=== PATIENT | female | born 1955 | race Caucasian/White ===

== ENCOUNTER 2017-07-24 08:06 | Day surgery (SDC) | payer OTHER ==
[~2017-07-24] VITALS: Ht 160 cm; Wt 91.2 kg
[~2017-07-24 08:06] MED LIST: ADIPEX-P37.5 MG PO; BREO ELLIPTA 21 EACH; BREO ELLIPTA I1 EACH INH; CELEBREX100 MG PO; COMBIVENT RESPIM4 GM INH; HYDROCHLOROTH12.5 MG PO; INCRUSE ELLI62.5 MCG IH; MOBIC15 MG PO; NORCO 5-325 TA1 EACH PO; PHENTERMINE H37.5 MG PO; PREDNISONE20 MG PO; PREVACID30 M1 PO; PREVACID30 MG PO; PRILOSEC20 MG PO; PROZAC10 MG PO; PROZAC20 MG PO; SINGULAIR10 MG PO; SYMBICORT 16010.2 GM INH; ZITHROMAX500 MG PO
--- NOTE | 2017-07-24 09:52 | NUR ---
07/24/17 0952 Coreen Villanueva 0949 PATIENT ARRIVES TO PACU SLEEPING, AWAKENS WITH VERBAL STIMULI, DENIES PAIN THEN BACK TO SLEEP. NC AT 3 LITERS.
--- NOTE | 2017-07-30 06:10 | OR ---
[facility] [address], [place] [address] Signed DATE OF OPERATION: 07/24/2017 SURGEON: Ni Ansari MD PREOPERATIVE DIAGNOSIS: Personal history of colonic polyps in 2009. POSTOPERATIVE DIAGNOSIS: Unremarkable colonoscopy. PROCEDURE: Colonoscopy without biopsy. ESTIMATED BLOOD LOSS: None. INDICATIONS: Ariela is a 61-year-old female, who underwent colonoscopy in July 2009. A small adenomatous polyp was removed just above her rectum. She returns for followup colonoscopy. She has no lower GI complaints. There is no family history of colon cancer or polyps. In the office, I gave her a pamphlet on colonoscopy. We looked at that together along with the risks including, but not limited to gas bloating, crampy abdominal pain, bleeding, perforation, requiring surgery, and missed diagnosis. We also discussed the need for IV conscious sedation. She had expressed understanding and wished to proceed. PROCEDURE NOTE: Ariela was taken into our endoscopy suite and placed in the left lateral decubitus position. She was given 7 mg of Versed and 100 mcg fentanyl to cover the case. A digital rectal exam was performed and this was unremarkable. The adult colonoscope was introduced and advanced all around into the cecum under direct visualization of the camera without difficulty. Her prep was quite good. The scope was then slowly withdrawn. We saw no pathology throughout her entire colon or rectum. Upon retroflexion of the scope, there was no additional pathology noted above the anal canal. After this, the gas was suctioned out and the colonoscope removed. Ariela tolerated the procedure quite well. RECOMMENDATIONS: I will see Ariela in my office in 5 years for repeat colonoscopy. Electronically Signed By: NI ANSARI MD 07/30/17 0610 PATIENT NAME: ARIELA GANDHI OPERATIVE REPORT DATE OF : 57 REPORT #: [id number] PHYSICIAN: NI ANSARI MD PCP: MARIO HAMPTON DO REPORT IS CONFIDENTIAL AND NOT TO BE RELEASED WITHOUT AUTHORIZATION [address] [address] Signed Ni Ansari MD ALB/MODL /[id number] cc: Mario Hampton DO Copies: MARIO HAMPTON DO ~ Electronically Signed By: NI ANSARI MD 07/30/17 0610 PATIENT NAME: ARIELA GANDHI OPERATIVE REPORT DATE OF : 57 REPORT #: [id number] PHYSICIAN: NI ANSARI MD PCP: WALKER,MARIO DO REPORT IS CONFIDENTIAL AND NOT TO BE RELEASED WITHOUT AUTHORIZATION
== END 2017-07-24 10:30 | disposition home or self-care (01) ==
LOC: DS 08:06 → OPS 08:06 → DS 09:45 → OPS 10:30
PROVIDERS: Colon & Rectal Surgery
PROC: 0DJD8ZZ Inspection of Lower Intestinal Tract, Via Natural or Artificial Opening Endoscopic (ICD-10-PCS; principal; 2017-07-24 09:45)
DX: Z12.11 Encounter for screening for malignant neoplasm of colon (principal); I10 Essential (primary) hypertension; J45.909 Unspecified asthma, uncomplicated; K21.9 Gastro-esophageal reflux disease without esophagitis; M19.90 Unspecified osteoarthritis, unspecified site; F32.9 Major depressive disorder, single episode, unspecified; Z86.010 Personal history of colon polyps; Z98.890 Other specified postprocedural states; Z79.899 Other long term (current) drug therapy
CPT/HCPCS: G0500; J2250; J3010; J7120

== ENCOUNTER 2017-12-17 11:54 | Emergency (ER) | payer OTHER ==
[~2017-12-17] VITALS: Ht 160 cm; Wt 91.2 kg
== END 2017-12-17 12:08 | disposition home or self-care (01) ==
LOC: ED 11:54
DX: S89.92XA Unspecified injury of left lower leg, initial encounter (principal); W01.0XXA Fall on same level from slipping, tripping and stumbling without subsequent striking against object, initial encounter; Y93.01 Activity, walking, marching and hiking; Y92.89 Other specified places as the place of occurrence of the external cause; Y99.0 Civilian activity done for income or pay

== ENCOUNTER 2019-12-21 08:06 | Emergency (ER) | payer OTHER ==
[~2019-12-21] VITALS: Ht 160 cm; Wt 91.2 kg
--- OUTSIDE RECORDS SUMMARY | ~2019-12-21 | XMS | Encounter Summary ---
Demographics + + + | Address | [address] | | | [place] [address] | + + + | Home Phone | | + + + | Preferred Language | Unknown | + + + | Marital Status | Single | + + + | Advent Affiliation | Unknown | + + + | Race | Unknown | + + + | Ethnic Group | Unknown | + + + Author + + + | Author | [facility] | | | and [place] | + + + | Organization | [facility] | | | and [place] | + + + | Address | Unknown | + + + | Phone | Unavailable | + + + Support + + +---------+ + | Name | Relationship | Address | Phone | + + +---------+ + | Domingo Lopez | ECON | Unknown | | + + +---------+ + | Ange Kwokconstantinelidia | ECON | Unknown | | + + +---------+ + | Judy Dumont | ECON | Unknown | | + + +---------+ + Care Team Providers + +------+ + | Care Hearing Therapist Name | Role | Phone | + +------+ + | Mario Vallecillo DO | PCP | | + +------+ + Encounter Details +--------+ + + + + | Date | Type | Department | Care Team | Description | +--------+ + + + + | 10/09/ | Abstract | [facility] | Antwan Olivo, | | | 2017 | | PULMONARY [address] | | | | | [place], | [place] [address] | | | | | [place] [address] | [phone] | | | | | [phone] | | | +--------+ + + + + Social History + +-------+ +--------+------+ | Tobacco Use | Types | Packs/Day | Years | Date | | | | | Used | | + +-------+ +--------+------+ | Former Smoker | | | | | + +-------+ +--------+------+ + + +---------+ + | Alcohol Use | Drinks/Week | oz/Week | Comments | + + +---------+ + | Yes | | | | + + +---------+ + + + + | Sex Assigned at | Date Recorded | | | | + + + | Not on file | | + + + documented as of this encounter Plan of Treatment Not on filedocumented as of this encounter Visit Diagnoses Not on filedocumented in this encounter"
--- OUTSIDE RECORDS SUMMARY | ~2019-12-21 | XMS | Clinical Summary ---
Demographics + + + | Address | [address] | | | [place] [address] | + + + | Home Phone | | + + + | Preferred Language | Unknown | + + + | Marital Status | Single | + + + | Faith Affiliation | Unknown | + + + | Race | Unknown | + + + | Ethnic Group | Unknown | + + + Author + + + | Author | [facility] | | | and [place] | + + + | Organization | [facility] | | | and [place] | [...] Team Providers + +------+ + | Care Neurophysiological Technician Name | Role | Phone | + +------+ + | Mario Vallecillo DO | PCP | | + +------+ + Allergies No Known Allergies Medications + + + +---------+------+------+-------+ | Medication | Sig | Dispensed | Refills | Star | End | Statu | | | | | | t | Date | s | | | | | | Date | | | + + + +---------+------+------+-------+ | lansoprazole | Take 30 mg by mouth | | 0 | | | Activ | | (PREVACID SOLUTAB) | every morning | | | | | e | | 30 mg disintegrating | (before breakfast). | | | | | | | tablet | | | | | | | + + + +---------+------+------+-------+ | FLUoxetine | Take 10 mg by mouth | | 0 | | | Activ | | (PROZAC) 10 mg | Daily. | | | | | e | | capsule | | | | | | | + + + +---------+------+------+-------+ | montelukast | Take 10 mg by mouth | | 0 | | | Activ | | (SINGULAIR) 10 mg | nightly. | | | | | e | | tablet | | | | | | | + + + +---------+------+------+-------+ | VITAMIN D, | Take 5,000 Units by | | 0 | | | Activ | | CHOLECALCIFEROL, PO | mouth Daily. | | | | | e | + + + +---------+------+------+-------+ | fluticasone | Inhale 2 puffs into | | 0 | | | Activ | | (FLOVENT HFA) 220 | the lungs 2 times | | | | | e | | mcg/puff inhaler | daily. | | | | | | + + + +---------+------+------+-------+ | | Inhale 2 puffs into | 1 | 1 | 04/1 | | Activ | | budesonide-formotero | the lungs 2 times | Inhaler | | 0/20 | | e | | l (SYMBICORT) | daily. | | | 18 | | | | 160-4.5 mcg/puff | | | | | | | | inhaler | | | | | | | + + + +---------+------+------+-------+ | albuterol | Inhale 2 puffs into | 18 g | 3 | 06/2 | | Activ | | (VENTOLIN HFA) 90 | the lungs every 4 | | | 7/20 | | e | | mcg/puff inhaler | hours as needed for | | | 18 | | | | | Wheezing or | | | | | | | | Shortness of Breath. | | | | | | + + + +---------+------+------+-------+ Active Problems Not on file Family History + + +------+ + | Medical History | Relation | Name | Comments | + + +------+ + | Cancer | Father | | | + + +------+ + | Hypertension | Father | | | + + +------+ + + +------+--------+ + | Relation | Name | Status | Comments | + +------+--------+ + | Father | | | | + +------+--------+ + Social History + + + +--------+ + | Tobacco Use | Types | Packs/Day | Years | Date | | | | | Used | | + + + +--------+ + | Former Smoker | Cigarettes | 1 | 10 | Quit: 10/31/1984 | + + + +--------+ + + + +---------+ + | Alcohol Use | Drinks/Week | oz/Week | Comments | + + +---------+ + | Yes | 0 Standard drinks | 0.0 | | | | or equivalent | | | + + +---------+ + + + + | Sex Assigned at | Date Recorded | | | | + + + | Not on file | | + + + Last Filed Vital Signs + + + + + | Vital Sign | Reading | Time Taken | Comments | + + + + + | Blood Pressure | 120/80 | 11/08/2016 2:10 PM | | | | | PDT | | + + + + + | Pulse | 92 | 11/08/2016 2:10 PM | | | | | PDT | | + + + + + | Temperature | 36.8 C (98.3 F) | 11/08/2016 2:10 PM | | | | | PDT | | + + + + + | Respiratory Rate | - | - | | + + + + + | Oxygen Saturation | 99% | 11/08/2016 2:10 PM | | | | | PDT | | + + + + + | Inhaled Oxygen | - | - | | | Concentration | | | | + + + + + | Weight | 90.1 kg (198 lb 11.2 | 11/08/2016 2:10 PM | | | | oz) | PDT | | + + + + + | Height | 161.3 cm (5' 3.5") | 11/08/2016 2:10 PM | | | | | PDT | | + + + + + | Body Mass Index | 34.65 | 11/08/2016 2:10 PM | | | | | PDT | | + + + + + Plan of Treatment + + +-------+ + | Health Maintenance | Due Date | Last | Comments | | | | Done | | + + +-------+ + | Vaccine: | | | | | Dtap/Tdap/Td (1 - | 6 | | | | Tdap) | | | | + + +-------+ + | Cervical Cancer | | | | | Screening (Pap) | 7 | | | + + +-------+ + | Vaccine: Zoster (1 | | | | | of 2) | 7 | | | + + +-------+ + | Breast Cancer | | | | | Screening | 2 | | | + + +-------+ + | Vaccine: Influenza | | | | | (#1) | 0 | | | + + +-------+ + Results Not on filefrom Last 3 Months Insurance + +--------+ +--------+ +---------+------+ | Payer | Benefi | Subscriber | Effect | Phone | Address | Type | | | t Plan | ID | jennifer | | | | | | / | | Dates | | | | | | Group | | | | | | + +--------+ +--------+ +---------+------+ | [employer] | PHP | [id number] | | [phone] | | PPO | | PLAN | PEBB | | 014-Pr | 5 | | | | | STATEW | | esent | | | | | | FORTINO | | | | | | + +--------+ +--------+ +---------+------+ + +--------+ +--------+ + + | Guarantor Name | Accoun | Relation to | Date | Phone | Billing Address | | | t Type | Patient | of | | | | | | | | | | + +--------+ +--------+ + + | Cassia Pathak | Person | Self | [birth year] | [address] | | [place] | al/Fam | | 1955 | [phone] | [place] [address] | | | kylah | | | 8 (Home) | | + +--------+ +--------+ + + Advance Directives + + + + + | Type | Date Recorded | Patient | Explanation | | | | Harp Repairer | | + + + + + | Power of | | | | | Bereavement Program Coordinator | | | | + + + + + | Advance | | | | | Directive | | | | + + + + +
--- OUTSIDE RECORDS SUMMARY | ~2019-12-21 | XMS | Encounter Summary ---
Demographics + + + | Address | [address] | | | [place] [address] | + + + | Home Phone | | + + + | Preferred Language | Unknown | + + + | Marital Status | Single | + + + | Spiritism Affiliation | Unknown | + + + | Race | Unknown | + + + | Ethnic Group | Unknown | + + + Author + + + | Author | [facility] | | | and [place] | + + + | Organization | [facility] | | | and [place] [...] Team Providers + +------+ + | Care Brownell Operator Name | Role | Phone | + +------+ + | Mario Vallecillo DO | PCP | | + +------+ + Reason for Visit + +--------+ + | Reason | Onset | Comments | | | Date | | + +--------+ + | Medication Refill | 11/26/ | | | | 2017 | | + +--------+ + Encounter Details +--------+--------+ + + + | Date | Type | Department | Care Team | Description | +--------+--------+ + + + | 11/26/ | Refill | [facility] | Antwan Olivo, | Medication Refill | | 2017 | | PULMONARY [address] | | | | | [place], | [place] [address] | | | | | [place] [address] | [phone] | | | | | [phone] | | | +--------+--------+ + + + Social History + + + +--------+ [...]
--- OUTSIDE RECORDS SUMMARY | ~2019-12-21 | XMS | Encounter Summary ---
Demographics + + + | Address | [address] | | | [place] [address] | + + + | Home Phone | | + + + | Preferred Language | Unknown | + + + | Marital Status | Single | + + + | Confucianism Affiliation | Unknown | + + + | Race | Unknown | + + + | Ethnic Group | Unknown | + + + Author + + + | Author | [facility] | | | and [place] | + + + | Organization | [facility] | | | and [place] | + + + | Address | Unknown | + + + | Phone | Unavailable | + + + Support + + +---------+ + | Name | Relationship | Address | Phone | + + +---------+ + | Domingo Lopez | ECON | Unknown | | + + +---------+ + | Ange Lawson | ECON | Unknown | | + + +---------+ + | Judy Guevara Peak | ECON | Unknown | | + + +---------+ + Care Team Providers + +------+ + | Care Ship Loader Name | Role | Phone | + +------+ + PCP | Unavailable | + +------+ + Encounter Details +--------+ + + + + | Date | Type | Department | Care Team | Description | +--------+ + + + + | 11/27/ | Hospital | [facility] | TevinVitaly Sarah, | | | 2000 | Encounter | MED [facility] | MD [address] [facility] | | | | | [address] | [place], [place] | | | | | [place], [place] | [address] | | | | | [address] | | | | | | [phone] | | | +--------+ + + + + Social History + +-------+ +--------+------+ | Tobacco Use | Types | Packs/Day | Years | Date | | | | | Used | | + +-------+ +--------+------+ | Never Assessed | | | | | + +-------+ +--------+------+ + + + | Sex Assigned at | Date Recorded | | | | + + + | Not on file | | + + + documented as of this encounter Plan of Treatment Not on filedocumented as of this encounter Visit Diagnoses Not on filedocumented in this encounter"
--- OUTSIDE RECORDS SUMMARY | ~2019-12-21 | XMS | Encounter Summary ---
Demographics + + + | Address | [address] | | | [place] [address] | + + + | Home Phone | | + + + | Preferred Language | Unknown | + + + | Marital Status | Single | + + + | Faith Affiliation | Unknown | + + + | Race | Unknown | + + + | Ethnic Group | Unknown | + + + Author + + + | Author | [facility] | | | and [place] | + + + | Organization | [facility] | | | and [...] Team Providers + +------+ + | Care Activity Coordinator Name | Role | Phone | + +------+ + | Mario Vallecillo DO | PCP | | + +------+ + Reason for Visit + +--------+ + | Reason | Onset | Comments | | | Date | | + +--------+ + | Medication Refill | 09/09/ | | | | 2017 | | + +--------+ + Encounter Details +--------+--------+ + + + | Date | Type | Department | Care Team | Description | +--------+--------+ + + + | 09/09/ | Refill | [facility] [place] | Antwan Olivo, | Medication Refill | | 2017 | | PULMONARY [address] | | | | | [place], | [place] [address] | | | | | [place] [address] | [phone] | | | | | [phone] | | | +--------+--------+ + + + [...]
--- OUTSIDE RECORDS SUMMARY | ~2019-12-21 | XMS | Encounter Summary ---
Demographics + + + | Address | [address] | | | [place] [address] | + + + | Home Phone | | + + + | Preferred Language | Unknown | + + + | Marital Status | Single | + + + | Episcopalian Affiliation | Unknown | + + + | Race | Unknown | + + + | Ethnic Group | Unknown | + + + Author + + + | Author | [facility] | | | and [place] | + + + | Organization | [facility] | | | and [place] [...] Team Providers + +------+ + | Care Geographic Information System Surveyor Name | Role | Phone | + +------+ + | Mario Vallecillo DO | PCP | | + +------+ + Reason for Visit +--------+ + | Reason | Comments | +--------+ + | Asthma | Consult | +--------+ + Evaluate & Treat (Routine) +--------+--------+ + + + + | Status | Reason | Specialty | Diagnoses / | Referred By | Referred To | | | | | Procedures | Contact | Contact | +--------+--------+ + + + + | Closed | | Pulmonology | Diagnoses | Avel, | Geovani, | | | | | Unspecified | Mario Villanueva DO | Antwan Solano MD | | | | | asthma, | [address] | [address] | | | | | uncomplicate | [address] | [place], [place] | | | | | d | [address] | [address] | | | | | Procedures | [address] | Phone: | | | | | NEW PT | [place], [place] | [phone] | | | | | CONSULT | [address] | Fax: | | | | | | Phone: | [phone] | | | | | | [phone] | | +--------+--------+ + + + + Encounter Details +--------+---------+ + + + | Date | Type | Department | Care Team | Description | +--------+---------+ + + + | 10/17/ | Office | [facility] | Antwan Olivo, | Moderate persistent | | 2017 | Visit | PULMONARY [address] | asthma without | | | | [place], | [place] [address] | complication | | | | [place] [address] | [phone] | (Primary Dx) | | | | [phone] | | | +--------+---------+ + + + Social History + + [...] + + documented as of this encounter Last Filed Vital Signs + + + + + | Vital Sign | Reading | Time Taken | Comments | + + + + + | Blood Pressure | 122/74 | 10/17/2016 2:24 PM | | | | | PDT | | + + + + + | Pulse | 98 | 10/17/2016 2:24 PM | | | | | PDT | | + + + + + | Temperature | 36.8 C (98.3 F) | 10/17/2016 2:24 PM | | | | | PDT | | + + + + + | Respiratory Rate | - | - | | + + + + + | Oxygen Saturation | 96% | 10/17/2016 2:24 PM | room air | | | | PDT | | + + + + + | Inhaled Oxygen | - | - | | | Concentration | | | | + + + + + | Weight | 89.2 kg (196 lb 9.6 | 10/17/2016 2:24 PM | | | | oz) | PDT | | + + + + + | Height | 161.3 cm (5' 3.5") | 10/17/2016 2:24 PM | | | | | PDT | | + + + + + | Body Mass Index | 34.28 | 10/17/2016 2:24 PM | | | | | PDT | | + + + + + documented in this encounter H&P Notes Antwan Olivo MD - 10/17/2016 3:43 PM [id number] woman with minimal smokin g history with aggressive dyspnea and recurrent persistent asthma She is sent by Dr. Mario Vallecillo for this problem. HPI: She is had persistent difficulty breathing and in late June went to the hospital ER in [place] with wheezing. She had wheezing again July 09. Each time her chest x-ray has been normal. She smoked about 1 pack per day from age 18 to age 26, and since then has not smoked at all . But her breathing is become more difficult in the past couple of years. 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 But the past couple years it is been truly problematic for her. She has no good veronica pic history: No hayfever no itchy eyes. She has 2 small dogs at home that do not provoke as thma. There is no family history of atopic he. But she [facility], and when she goes out to work in her yard she will have wheezing. She weighe d 125 pounds for a long time and now weighs 196, and may have gained 10 pounds since her aj ulder surgery, and has heard that weight gain can make asthma more difficult to treat. Past medical history: She had surgery on her right shoulder August 22. She had some blood p ressure elevation when she was in the hospital but otherwise not. Her current medications a re montelukast 10 mg once daily, nebulized albuterol 4 times a day, and Symbicort 162 puffs twice daily. She has never used a spacer and is unaware of them. She does not have albuter ol HFA for when necessary use. She has been given Combivent but is not using it. She was g iven a dry powder inhaler of Breo in the past. Drug allergies: None Social history: She lives with her boyfriend, her daughter, and her daughters 4-year-old, a s well as to 2 small dogs. She does not get wheezy around any of them. She works [employer] but is on Workmen's Compensation now after her surgery. She drinks alcohol maybe 3 times per year. Review of systems: 10 systems were asked. She is positive for weight gain, some night swea ts occasionally, heartburn, and waking up at night frequently. Physical exam: She is a pleasant attentive articulate woman distress. Weight 197 blood pre ssure 122/74 pulse 98 and regular temperature 98.3 respirations 14 quiet and saturation 96% on room air. HEENT: Pupils are midsize and reactive. Conjunctiva are pink. The oropharynx is normal. There is no thrush or erythema. The nares show no injected turbinates were dus ky mucosa of atopic he. The neck feels normal with normal carotids and no adenopathy. The lung hollis appear to show restricted air movement and prolonged expiratory phase but no whe ezing at the moment. Rhythm is regular with no murmur or gallop. The abdomen is quite obes e but nontender. Extremities show no edema. Laboratory evaluation: Chest x-rays from July 02, 2016 in July 09, 2016 are clear wit h normal heart size. The lung volumes are somewhat small. Dr. Vallecillo's office sent rubber chemist dante and CBC from July 10 from [facility] and also July 02 and these are unr emarkable, with normal eosinophil counts and a couple have elevated glucose. Impression and suggestions: 1. Chronic persistent asthma: I explained that her body will be able to do this to her, an d that weight loss will probably help control. I spent considerable time explaining to her how we use steroids to control asthma, and that Symbicort him a combination medication of st eroid with long-acting albuterol, we cannot give is much steroid is would be useful. I also explained to her health spacers increased the amount of HFA drug delivered to the lung from 10 or 15% to 40 or 45%. I wrote her a prescription for a spacer, 4 albuterol HFA, and for Flovent 220 her Asmanex 200 HFA, to use 2 puffs every 12 hours. I told her it's important u ses Symbicort 2 puffs every 12 hours. Over time, she may be able to reduce the amount of in haled steroid she's taking, to 1 puff of the steroid every 12 hours in addition to the Symbi andres. May be, when she is good control, she can use only the Symbicort 2 puffs every 12 misael rs. But not now. I spent considerable time practicing with her how to use a spacer and showed her how there are YouTube videos describing it. She should return in 4 weeks with her spacer and her inhaled drugs and we'll see how she's doing. I explained to her several times that with her abdomen so big, her lungs cannot full y expand to get his much air as she needs, so that weight loss is important part of getting better. We spent 50 minutes, at least half in counseling. [employer] Word processing was used, and I a pologize for uncorrected mistakes. nAtwan Olivo M.D. Pulmonary critical care documented in this encounter Plan of Treatment Not on filedocumented as of this encounter Procedures + +--------+ + + + | Procedure Name | Priori | Date/Time | Associated Diagnosis | Comments | | | ty | | | | + +--------+ + + + | IMAGING REPORT - | | 07/09/2016 | | Results for this | | EXTERNAL SCAN | | 12:00 AM | | procedure are in the | | | | PST | | results section. | + +--------+ + + + | LABS - EXTERNAL SCAN | | 07/09/2016 | | Results for this | | | | 12:00 AM | | procedure are in the | | | | PST | | results section. | + +--------+ + + + documented in this encounter Results LABS - EXTERNAL SCAN (07/09/2016 12:00 AM PST) + + + | Narrative | Performed At | + + + | Ordered by an | | | unspecified provider. | | + + + IMAGING REPORT - EXTERNAL SCAN (07/09/2016 12:00 AM PST) + + + | Narrative | Performed At | + + + | Ordered by an | | | unspecified provider. | | + + + documented in this encounter Visit Diagnoses + + | Diagnosis | + + | Moderate persistent asthma without complication - Primary Unspecified asthma | + + documented in this encounter
--- OUTSIDE RECORDS SUMMARY | ~2019-12-21 | XMS | Encounter Summary ---
Demographics + + + | Address | [address] | | | [place] [address] | + + + | Home Phone | | + + + | Preferred Language | Unknown | + + + | Marital Status | Single | + + + | Zoroastrianism Affiliation | Unknown | + + + | Race | Unknown | + + + | Ethnic Group | Unknown | + + + Author + + + | Author | [facility] | | | and [place] | + + + | Organization | [facility] | | | and [place] | + + + | Address | Unknown | + + + | Phone | Unavailable | + + + Support + + +---------+ + | Name | Relationship | Address | Phone | + + +---------+ + | Domingo Lopez | ECON | Unknown | | + + +---------+ + | Ange Pathak | ECON | Unknown | | + + +---------+ + | Judy Dumont | ECON | Unknown | | + + +---------+ + Care Team Providers + +------+ + | Care Gis Consultant Name | Role | Phone | + +------+ + | Mario Vallecillo DO | PCP | | + +------+ + Reason for Visit +--------+ + | Reason | Comments | +--------+ + | Asthma | 1 mo follow up | +--------+ + Encounter Details +--------+---------+ + + + | Date | Type | Department | Care Team | Description | +--------+---------+ + + + | 11/08/ | Office | [facility] | Antwan Olivo, | Moderate persistent | | 2017 | Visit | PULMONARY [address] | asthma without | | | | [address], | [place] [address] | complication | | | | [place] [address] | [phone] | (Primary Dx) | | | | [phone] | | | +--------+---------+ + + + [...] + + + documented in this encounter Progress Notes Antwan Olivo MD - 11/08/2016 2:40 PM [id number] woman with probably lifel triny asthma previously poorly controlled I saw her 2 weeks ago and showed her how to use a spacer, explained its importance, and add ed Flovent 222 puffs twice daily to her regimen of Symbicort 160, 2 puffs twice daily and ne bulized albuterol. But when she got her Flovent prescription filled by a bimart pharmacist, he said it was wrong to take Flovent and Symbicort, because there was steroids and both of them. So she follow the pharmacist advice. It is unfortunate the pharmacist gives flatly w mabel advice to the patient instead of phoning the physician when he has a chance in order to learn something new about pulmonary medicine. But she did not use the Flovent. However, even using the Symbicort now on a spacer improved her asthma, and she did not need the nebulized drug very often. She brought her spacer and Flovent and was using the spacer almost correctly. She did not empty her lungs sufficiently before and because she was push ing, rather than making a complete but passive exhalation. We practiced how to do with the right way. Physical exam: Weight 199, blood pressure 120/80 pulse 92 regular, respirations 16 quiet te mperature 98.3, oxygen saturation 99% on room air. HEENT: The oropharynx is fine with no th quigley. The neck is normal. The lung hollis show slight wheeze at end inspiration and wheeze at and exhalation but good airflow at the mouth. Cardiac rhythm is regular. The extremiti es have no edema. Laboratory evaluation: There is no new lab today Impression and plan: 1. Chronic moderate persistent asthma: She should take the Flovent 2 puffs twice daily and add it to her current regimen. When she feels she is optimized, she c ould try subtracting 1 Flovent puff, 21 puff twice daily through the spacer in addition to 2 puffs twice daily through the spacer of Symbicort. If she worsens, she should increase the Flovent again. If she is stable, she can stay on 1 puff twice daily, and may even consider ing time drop in the Flovent entirely. But she should pay close attention, since the amount of inhaled steroid in Symbicort, even through the spacer, is not very much for someone with moderate persistent asthma. She can return when necessary. Spent 15 minutes, at least half in counseling. [employer] Word processing was used and I apologize for uncorrected mistakes. Antwan Olivo M.D. Pulmonary critical care documented in this encounter Plan of Treatment Not on filedocumented as of this encounter Visit Diagnoses + + | Diagnosis | + + | Moderate persistent asthma without complication - Primary Unspecified asthma | + + documented in this encounter
--- OUTSIDE RECORDS SUMMARY | ~2019-12-21 | XMS | Encounter Summary ---
Demographics + + + | Address | [address] | | | [place] [address] | + + + | Home Phone | | + + + | Preferred Language | Unknown | + + + | Marital Status | Single | + + + | Tenriism Affiliation | Unknown | + + + | Race | Unknown | + + + | Ethnic Group | Unknown | + + + Author + + + | Author | [facility] | | | and [place] | + + + | Organization | [facility] | | | and [place] | [...] Team Providers + +------+ + | Care Credit Product Analyst Name | Role | Phone | + +------+ + | Mario Vallecillo DO | PCP | | + +------+ + Reason for Visit + +--------+ + | Reason | Onset | Comments | | | Date | | + +--------+ + | Medication Refill | 11/01/ | | | | 2016 | | + +--------+ + Encounter Details +--------+--------+ + + + | Date | Type | Department | Care Team | Description | +--------+--------+ + + + | 11/01/ | Refill | [facility] | Antwan Olivo, | Medication Refill | | 2016 | | PULMONARY [address] | | | | | [address], | [place] [address] | | | | | [place] [address] | [phone] | | | | | [phone] | | | +--------+--------+ + + + [...]
== END 2019-12-21 10:22 | disposition home or self-care (01) ==
LOC: ED 08:06
DX: S83.91XA Sprain of unspecified site of right knee, initial encounter (principal); F32.9 Major depressive disorder, single episode, unspecified; J45.909 Unspecified asthma, uncomplicated; K21.9 Gastro-esophageal reflux disease without esophagitis; Z79.899 Other long term (current) drug therapy; W18.40XA Slipping, tripping and stumbling without falling, unspecified, initial encounter
CPT/HCPCS: 73560; 99283-25; A9270

== ENCOUNTER 2020-06-26 17:46 | Inpatient (IN) | payer OTHER ==
[~2020-06-26] VITALS: Ht 157.5 cm; Wt 95.0 kg
[2020-06-26] MEDS ORDERED: SYMBICORT 16010.2 GM INH (17:57)
[2020-06-26] MEDS ORDERED: VENTOLIN HFA18 GM INH (17:58)
[2020-06-26] MEDS ORDERED: SPIRIVA18 MCG INH (17:58)
[2020-06-26] MEDS ORDERED: PREDNISONE20 MG PO (17:59)
[2020-06-26] MEDS ORDERED: ZITHROMAX250 MG PO (17:59)
--- NOTE | 2020-06-26 23:00 | NUR ---
pt arrived via stretcher with lighthouse keeper on the cafeteria monitor. Pt able to scoot herself from stretcher to bed, heart rate in the 120s with exertion, pt tachypneic rr= 26-28. pt now resting in bed, breathing even but labored.
--- NOTE | 2020-06-26 23:30 | NUR ---
initial assessment completed at this time. Pt up to BSC to void. stable on feet. heart rate and respiratory rate elevated with exertion. pt back in bed. Lung sound tight in the upper airways, with expiratory wheeze noted in both bases. Plan of care established for the night. Pt questions answered. Medications administered at this time. call light within reach. no further needs at this time.
--- NOTE | 2020-06-27 00:19 | NUR ---
RT in room at this time to give pt a breathing treatment.
--- NOTE | 2020-06-27 01:17 | NUR ---
PT RESTING WITH EYES CLOSED. BREATHING APPEARS EVEN AND UNLABORED. SPO2 = 96 PERCENT AT THIS TIME. HEART RATE 110-115 AT REST. CALL LIGHT WITHIN REACH. NO ASSESSED NEEDS AT THIS TIME.
--- NOTE | 2020-06-27 02:28 | NUR ---
PT CALLS, UP TO BSC TO VOID 500ML YELLOW URINE THEN BACK TO BED WITH CALL LIGHT IN HAND. HR 110-115, RESP SLIGHTLY MORE LABORED WITH ACTIVITY.
--- NOTE | 2020-06-27 04:37 | NUR ---
PT ASSESSMENT COMPLETED. PT UP TO BATHROOM. RR IN THE HIGH 20S WITH EXERTION. HEART RATE UP TO 130. EXPIRATORY WHEEZES NOTED THROUGH ALL AIR FEILDS. RT IN ROOM TO GIVE BREATHING TX AT THIS TIME.
--- NOTE | 2020-06-27 05:54 | NUR ---
IN ROOM FOR MEDICATION ADMINISTRATION. PT REPORTS FEELING LESS SHORT OF BREATH THAN BEFORE THE BREATHING TREATMENT. RR = 19 AT THIS TIME. IV FLUIDS CONTINUE TO INFUSE. CALL LIGHT WITHIN REACH. NO FURTHER NEEDS AT THIS TIME.
--- NOTE | 2020-06-27 06:37 | NUR ---
PT UP TO BSC, UP TO 120 WITH ACTIVITY. RR=22. PT BACK IN BED, CALL LIGHT WITHIN REACH. NO FURTHER NEEDS
--- NOTE | 2020-06-27 07:30 | NUR ---
report recieved, patient is watching tv,no distress noted.
--- NOTE | 2020-06-27 07:50 | NUR ---
Pt lives with her SO and works at [employer] Pt has had asthma since her 30's with occassional exaceration. She is concerned working at [employer] sets it off. She uses a nebulizer at home and does not have issues getting her meds. States she has been using her nebulizer 3 x a days for the last 2 weeks. Plans on discharge to home with SO when cleared for discharge.
[2020-06-27] MEDS ORDERED: PREVACID30 MG PO (08:00)
--- NOTE | 2020-06-27 08:00 | NUR ---
ASSESSMENT DONE. STATES SHE FEELS BETTER TODAY, MOVING AIR WELL. DENEIS CHEST PAIN. C/O HEARTBURN. ROUTINE MEDICATION TO BE GIVEN. TALKED WITH PATIENT ABOUT POC FOR DAY, IS UNDERSTANDING.
--- NOTE | 2020-06-27 08:40 | NUR ---
PATIENT IS SITTING UP IN BED READDY FOR BREAKFAST. DR. CHACON HERE TO SEE PATIENT, ORDERS RECIEVED.
--- NOTE | 2020-06-27 10:21 | NUR ---
TELE #8 APPLIED. REPORT GIVNE TO MED-SURG.
[2020-06-27] MEDS ORDERED: PROZAC10 MG PO (10:40)
--- NOTE | 2020-06-27 10:45 | NUR ---
to med- surg via chair.
--- NOTE | 2020-06-27 10:45 | NUR ---
RECEIVED PT FROM CCU VIA CHAIR. PT ON 1L NC SATURATIONS 94%. VITALS TAKEN AND STABLE. LUNCH ORDERED. NEYMAR RN NOTIFIED OF PT REPORTING HEART BURN.
[2020-06-27] MEDS ORDERED: ALBUTEROL2.5 MG/3 M INH (11:14)
[2020-06-27] MEDS ORDERED: ZITHROMAX500 MG PO (11:14)
--- NOTE | 2020-06-27 11:16 | NUR ---
MED REC COMPLETE
--- NOTE | 2020-06-27 11:50 | NUR ---
THIS RN IN PTS ROOM TO PROVIDE PT WITH ASKED FOR TUMS DUE TO PT FEELING LIKE SHE WAS HAVE HEARTBURN. PT STATED THAT SHE ALSO NEEDED TO USE THE RESTROOM. THIS RN STAND BY ASSISTED PT TO THE RESTROOM. PT TOLERATED WELL, PT DID STATE THAT SHE WOULD LIKE TO CONTINUE TO WEAR THE O2 FOR COMFORT AFTER GETTING BACKS TO BED- PT STATES THAT SHE HAS A BIT OF SHORTNESS OF BREATH AFTER GETTING BACK TO BED BUT IMPROVES WHEN SHE SITS DOWN AND RESTS
--- NOTE | 2020-06-27 12:08 | EKG ---
[facility] [address] [place], [place] [address] Signed Sinus tachycardia Nonspecific ST and T wave abnormality Abnormal ECG No previous ECGs available Confirmed by SHANTA CHACON MD ([id number]) on 06/27/2020 12:08:43 PM Electronically Signed By: SHANTA CHACON MD 06/27/20 1208 PATIENT NAME: ARIELA GANDHI Electrocardiogram DATE OF : 57 PHYSICIAN: SHANTA CHACON MD REPORT #: [id number] REPORT IS CONFIDENTIAL AND NOT TO BE RELEASED WITHOUT AUTHORIZATION
--- NOTE | 2020-06-27 16:57 | NUR ---
THIS RN POKED HER HEAD IN TO SEE HOW PT WAS FEELING. PT STATED THAT SHE FELT LIKE SHE WAS DOING WELL. PT STATED THAT SHE THOUGHT SHE NEEDED TO USE THE RESTROOM. THIS RN STATED PT COULD GO WITHOUT STAFF SINCE SHE IS STEADY ON HER FEET. PT STATED THAT SHE WOULD CALL IF SHE FELT LIKE SHE NEEDED HELP
--- NOTE | 2020-06-27 19:20 | NUR ---
IN ROOM FOR REPORT, PT DENIES NEEDS AT THIS TIME. CALL LIGHT IS CLOSE.
--- NOTE | 2020-06-27 19:25 | NUR ---
ICE WATER PROVIDED. NO OTHER NEEDS AT THE TIME.
--- NOTE | 2020-06-27 21:56 | NUR ---
PT COMPLAINED OF A 3/10 HEADACHE. MED WITH TYLENOL. CALL LIGHT WITHIN REACH. NO OTHER NEEDS AT THIS TIME.
--- NOTE | 2020-06-27 22:30 | NUR ---
IN ROOM TO ASSESS PT AND ADMINISTER THE REST OF THE MEDICATIONS. HAD DESIGN ENGINEER PRODUCTS ADMINISTER THE OTHER ARUNA GOMEZULAIR A LITTLE EARLIER. PT DENIES SOB AND PAIN. SHE REPORTS AN OCCASIONAL PRODUCTIVE COUGH. SHE IS ON TELE#8 WITH HR IN UPPER 90'S TO LOW 100'S. RECORDED I&O'S AND GAVE FRESH WATER AND JUICE. PT DENIES FURTHER NEEDS. CALL LIGHT IS CLOSE.
--- NOTE | 2020-06-27 23:21 | NUR ---
PT'S HR IS IN THE 130'S TO 140'S SINCE JUST AFTER 2300 AND IS SUSTAINED. PT IS SITTING IN BED AND DENIES GETTING UP THE THE RESTROOM. SHE ALSO DENIES ANY OTHER SYMPTOMS. NOTIFIED DR DONOHUE AND RECEIVED A 1 TIME DOSE OF 30MG PO CARDIZEM AND INCREASED HER Q6 DOSE TO 45MG. NO FURTHER ORDERS RECEIVED.
--- NOTE | 2020-06-27 23:28 | NUR ---
ADMINISTERED ONE TIME DOSE OF PO CARDIZEN 30MG. PT CONTINUES TO DENY AND PAIN OR SOB. CALL LIGHT IS CLOSE.
--- NOTE | 2020-06-28 00:54 | NUR ---
0035 PT'S HR INCREASED INTO 160'S. CCU RN HADLEY WAS IN ROOM WITH PT. VS TAKEN AND ENTERED SHOWING ELEVATED BP 173/109 AND PULSE OF 161. PT REPORTS FEELING JITTERY AND SWEATY. RAYNE CCU RN IN ROOM STARTING EKG ALONG WITH JADIEL WITH RT. SOLO TRUCK DRIVER LEONARDO IN THE ROOM AND RAVI SALAZAR. PT STATES SHE IS NERVOUS BUT DENIES OTHER SX. RAYNE RN LEFT TO CALL DR DONOHUE AND PT WAS TRANSFERED OVER TO CCU AT 0045.
--- NOTE | 2020-06-28 01:00 | NUR ---
0015 - pt heart rate maintained in the 130s an hour after oral cardizem dose given. ccu rn jayjay in room to check on patient 0025 - pt in svt with a heart rate in the 160s. pt reports feeling dizzy and diaphoretic. vagal manuevers attempted ekg done at this time. 0030 - sustained svt. pt visibly flushed. notified. orders recieved. 0045 - pt transfered to ccu. placed on surveyor. crash cart outside of room. pt heart rate remains in the 160s. this rn, station installation supervisor, ccu rn, and respiratory therapy at bedside. 0055- 6 mg iv adenosine administered. pt heart rate down to 110-120 at this time 0100 - pt heart rate maintained 115 - 120. pt denies chest discomfort or dizziness. 0110 - repeat ekg completed.
--- NOTE | 2020-06-28 01:21 | NUR ---
PT IN SINUS RHYTHM WITH A RATE OF 110 BPM. PT DENIES DISCOMFORT. DR DONOHUE UPDATED ON PATIENT CONDITION. ORDERS RECIEVED (SEE EMAR).
--- NOTE | 2020-06-28 01:41 | NUR ---
IN TO ADMINISTER ORDERED MEDICATIONS. PT LAYING IN BED AWAKE AND ALERT WATCHING TV. IV MEDICATION NOW INFUSING, PO MEDICATION ADMINISTERED (SEE MAR). PT REPORTS NO FURTHER NEEDS WHEN ASKED, WILL CONTINUE PLAN OF CARE.
--- NOTE | 2020-06-28 03:16 | NUR ---
Patient sleeping in bed at this time, respirations even and unlabored. HR in the 70-80's. Patient on 1LNC, SpO2 90-92%. Call light within reach.
--- NOTE | 2020-06-28 03:43 | NUR ---
Patient desaturating to 88% on 1LNC, oxygen titrated to 2LNC. SpO2 rises to 93%. Patient sleeping in bed at this time, call light within reach.
--- NOTE | 2020-06-28 04:30 | NUR ---
Patient sleeping in bed, respirations even and unlabored. HR in the 70-80's, SpO2 ranging from 91-93% on 2LNC. Call light within reach.
--- NOTE | 2020-06-28 05:30 | NUR ---
Patient arouses, this RN in room to perform assessment and draw labs. HR in the 80-90's while awake, in normal sinus rhythm. Patient denies SOB, palpitations, or chest discomfort/pain. Patient up to BSC, voids 525 of concentrated urine. Patient steady on feet, able to ambulate independently. Radial pulses equal and strong bilaterally, lung sounds clear. Nonproductive cough noted. Patient lays down in bed. 20g IV started in left hand, AM labs drawn and sent off. Water refreshed, apple juice refreshed. Patient now watching tv, denies further needs. Call light within reach.
--- NOTE | 2020-06-28 06:38 | NUR ---
Patient reports heartburn, prn medication given. HR in the 80-90's, NSR. Systolic BP in the 120's. Respirations even and unlabored. Call light within reach.
--- NOTE | 2020-06-28 08:15 | NUR ---
PT AWAKE IN BED WATCHING TELEVISION. MORNING ASSESSMENT COMPLETED AND MEDICATIONS GIVEN. HR SINUS RHYTHM IN 90'S. BP SLIGHTLY ELEVATED AT 152/80. SCHEDULED 60 MG PO CARDIZEM GIVEN. PT REPORTS SHE IS FEELING A LITTLE ANXIOUS THIS MORNING D/T THE EVENTS THAT HAPPENED LAST NIGHT. SAYS SHE'S AFRAID THAT ACTIVITY WILL INCREASE HER HR AND BP AGAIN. STATES SHE WOULD LIKE TO TALK TO THE DR. THIS MORNING. LUNG SOUNDS BUL CLEAR, BLL DIMINISHED, CRACKLES HEARD ON AUSCULTATION. PT DENIES PAIN OR NAUSEA AT THIS TIME. RECEIVED TUMS AT 0630 FOR HEARTBURN, PT REPORTS IT HAS RESOLVED. NO OTHER NEEDS AT THIS TIME. CALL LIGHT WITHIN REACH.
--- NOTE | 2020-06-28 08:37 | NUR ---
20 G IN RT AND LT HAND BOTH PATENT, FLUSHING WELL. PT GIVEN BREAKFAST. EATING SITTING UP IN BED.
--- NOTE | 2020-06-28 09:25 | NUR ---
PT REQUESTED TO USE THE COMMODE. VOIDED 300 MLS CLEAR YELLOW URINE. UP TO CHAIR FOR BREATHING TX. RT IN ROOM NOW. CALL LIGHT IN REACH. WATCHING TV.
--- NOTE | 2020-06-28 09:30 | NUR ---
PATIENT ASKING FOR LETTER TO SEND TO ATTORERY. WILL ASK MANAGEMENT ABOUT DOING THIS.
--- NOTE | 2020-06-28 09:40 | NUR ---
Spoke with Michaelle. She is concerned as she feels she is having issues with her heart and had to return to CCU. Denies breathing problems this am. I will see her tomorrow.
--- NOTE | 2020-06-28 10:20 | NUR ---
CARE TECHNICIAN AND S. BERLIE RN (CCU CYBER SECURITY SYSTEMS ENGINEER) ARE HERE TO TO TALK WITH PATIENT ABOUT GOING INTO TREATMENT FOR DRUG ADDICATION AND FOR REASON WHY WANTS STAFF TO SEND A NOTE TO HIS [facility] ON HIS BEHALF. Ayaz GUTIERREZ SAID IT WAS OK TO GIVE THE A FACE SHEET WITH PATIENT INFORMATION, NEEDS IT COURT DATE. PATIENT AND PATIENT TOLD CARE TECHNICIAN AND S. BERLIE( CCU CYBER SECURITY SYSTEMS ENGINEER THEY ARE GOING TO GO HOME TODAY). MD AWARE OF PATIENT WANTING TO BE DISCHARGE.
--- NOTE | 2020-06-28 10:30 | NUR ---
DR. DONOHUE HERE TO SEE PATIENT, PATIENT AND PATIENT CONTINUE TO WANT TO BE DISCHARGED TODAY. PATIENT AND PATIENT PLAN ON LEAVING AMA.
--- NOTE | 2020-06-28 10:42 | NUR ---
BP HAS DECREASED TO 136/68 SINCE PO CARDIZEM WAS GIVEN THIS AM. PT REPORTS SHE IS FEELING LESS ANXIOUS. HR REMAINS SINUS RHYTHM IN THE 80'S. CONTINUES TO REST IN CHAIR. PT REMAINS ON 2 L O2 NC, REPORTS SHE IS NOT ON O2 AT HOME, HOWEVER PT HAS REQUIRED O2 SINCE APPROX 0100 WHEN ADENOSINE WAS GIVEN. INCENTIVE SPIROMETER ON BEDSIDE TABLE. PT EDUCATED ON USE.
--- NOTE | 2020-06-28 10:50 | NUR ---
AMA FORMED SIGNED. IV SITE DC'D WITH CATH INTACT. PATIENT DRESSED. O2 OFF.
--- NOTE | 2020-06-28 10:59 | NUR ---
ASSISTED OUT AMA VIA W/C.
--- NOTE | 2020-06-28 11:13 | NUR ---
PT UP IN CHAIR. DR. DONOHUE IN TO SEE PT.
--- NOTE | 2020-06-28 11:25 | NUR ---
PT TITRATED FROM 2 L NC. ATTEMPTED TO WEAN PT TO ROOM AIR BUT PT UNABLE TO SAT >90%, DROPPED DOWN TO 89%. APPLIED 1 L 02 NC AND PT NOW SATING 92%-95%. RT NOW IN ROOM FOR BREATHING TX.
--- NOTE | 2020-06-28 12:19 | NUR ---
PT ABLE TO AMBULATE HALLWAY AND TOLERATED WELL. AMBULATED ON 2 L NC, SATS REMAINED >91%. HR WELL SUSTAINED 95-110 IN SINUS RHYTHM. PT DENIES DIZZINESS OR SOB. PT NOW BACK TO CHAIR. LUNG SOUNDS ARE CLEAR THROUGHOUT. VSS. NOON ASSESSMENT COMPLETE. NO OTHER NEEDS AT THIS TIME. LIKELY TO TRANSFER TO MED-SURG THIS AFTERNOON PER DR. DONOHUE. CALL LIGHT IN REACH.
--- NOTE | 2020-06-28 13:30 | NUR ---
IN TO GIVE PO CARDIZEM. BP 120/68 HR 90'S AT REST. PT EATING WELL. ENCOURAGED PO FLUID INTAKE. PT WITHOUT FURTHER NEEDS. NOON ASSESSMENT COMPLETED EARLIER, ALONG W/ NEB TX. NO ACUTE CHANGES. CALL LIGHT IN REACH.
--- NOTE | 2020-06-28 14:53 | EKG ---
[facility] [address] [place], [place] [address] Signed Supraventricular tachycardia Nonspecific ST and T wave abnormality Abnormal ECG No previous ECGs available Confirmed by BRYAN DONOHUE DO ([id number]) on 06/28/2020 2:53:36 PM Electronically Signed By: BRYAN DONOHUE DO 06/28/20 1453 PATIENT NAME: ARIELA GANDHI Electrocardiogram DATE OF : 57 PHYSICIAN: BRYAN DONOHUE DO REPORT #: [id number] REPORT IS CONFIDENTIAL AND NOT TO BE RELEASED WITHOUT AUTHORIZATION
--- NOTE | 2020-06-28 14:54 | EKG ---
[facility] [address] [place], [place] [address] Signed Sinus tachycardia Cannot rule out Anterior infarct , age undetermined Abnormal ECG When compared with ECG of 26-JUN-2020 18:01, Nonspecific T wave abnormality, improved in Inferior leads Confirmed by BRYAN DONOHUE DO ([id number]) on 06/28/2020 2:53:58 PM Electronically Signed By: BRYAN DONOHUE DO 06/28/20 1454 PATIENT NAME: ARIELA GANDHI Electrocardiogram DATE OF : 57 PHYSICIAN: BRYAN DONOHUE DO REPORT #: [id number] REPORT IS CONFIDENTIAL AND NOT TO BE RELEASED WITHOUT AUTHORIZATION
--- NOTE | 2020-06-28 15:13 | NUR ---
PT UP TO BATHROOM TO VOID 400 MLS CONCENTRATED YELLOW URINE. AMBULATING WELL, HR STABLE. PT C/O SMALL HEADACHE, TYLENOL OFFERED BUT PT REFUSED. ENCOURAGED TO INCREASE PO FLUID INTAKE. PT HAS ALSO HAD INCREASE IN NON-PRODUCTIVE COUGH. GIVEN HOT TEA W/ HONEY, PT REPORTS IT HAS HELPED. REMAINS IN CHAIR WATCHING TV. CALL LIGHT IN REACH.
--- NOTE | 2020-06-28 16:00 | NUR ---
ORDERS FOR TRANSFER TO MED SURG FROM DR. DONOHUE. TECH ED/WOODSHOP TEACHER JUNIOR PARDO. PT TO BE TRANSFERRED TO [facility]. AFTERNOON ASSESSMENT COMPLETED. NO ACUTE CHANGES. VITAL SIGNS REMAIN STABLE. PT IS AFEBRILE. LUNG SOUNDS ARE CLEAR. PT NOW DENIES ANY PAIN, WAS C/O SMALL HEADACHE PRIOR. REPORT CALLED TO MS NEYMAR RN @ [phone].
--- NOTE | 2020-06-28 16:20 | NUR ---
PT AMBULATORY, WALKED TO MS ROOM 116 WITH THIS RN @ 8826. DENIES SOB, DIZZINESS, OR WEAKNESS. TOLERATED WELL. NOW IN CARE OF NEYMAR MS RN.
--- NOTE | 2020-06-28 16:48 | NUR ---
PT ARRIVED TO FLOOR VIA WALKING. PT ON ROOM AIR TO WALK OVER AND ON 93% ON ROOM AIR SITTING IN CHAIR. PT BACK ON 1L DE FORCOMFROT
--- NOTE | 2020-06-28 19:30 | NUR ---
PATIENT RESTING QUIETLY IN BED WATCHING TV. PATIENT HAS NO NEEDS AT THIS TIME, CALL LIGHT IN REACH.
--- NOTE | 2020-06-28 20:15 | NUR ---
PATIENT REMAINS ON 1L/NC AND SATING IN THE HIGH 90'S. PATIENT HAVING NO PAIN. PATIENT'S WATER GLASS REFILLED AND IS COMFORTABLE AT THIS TIME. CALL LIGHT IS IN REACH.
--- NOTE | 2020-06-28 22:20 | NUR ---
PATIENT RESTING QUIETLY, EYES CLOSED, RESPIRATIONS REGULAR AND EVEN, CALL LIGHT IN REACH.
--- NOTE | 2020-06-29 00:30 | NUR ---
PATIENT CONTINUES TO REST QUIETLY, EYES CLOSED, RESPIRATIONS REGULAR AND EVEN, CALL LIGHT IN IN REACH.
--- NOTE | 2020-06-29 02:13 | NUR ---
PATIENT RESTING QUIETLY, EYES CLOSED, RESPIRATIONS REGULAR AND EVEN, REMAINS ON 1L/NC, CALL LIGHT IN REACH.
--- NOTE | 2020-06-29 03:06 | NUR ---
PATIENT STILL RESTING QUIETLY WITH EYES CLOSED, CALL LIGHT IN REACH, RESPIRATIONS REGULAR AND EVEN.
--- NOTE | 2020-06-29 04:24 | NUR ---
PATIENT ASKED FOR A NEB TREATMENT AND RT WAS CALLED AND ARE ON THERE WAY. PATIENT INFORMED AND CALL LIGHT IS IN REACH.
--- NOTE | 2020-06-29 06:43 | NUR ---
PATIENT HAS HAD ONLY 2 NEBS SO FAR THIS SHIFT AND REMAINS ON 1L/NC WITH SATS IN THE HIGH 90'S. VS HAVE BEEN STABLE, PATIENT HAVING GOOD ORAL INTAKE, HAS BEEN INDEPENDENT IN THE ROOM, AND HAS NOT HAD MANY NEEDS. CALL LIGHT IN REACH. PATIENT RESTING.
--- NOTE | 2020-06-29 07:56 | NUR ---
MORNING ASSESSMENT DONE. 0800 CARDIZEM GIVEN, VITALS ARE STABLE. PATIENT IS ON 1L NC AT 97%. PATIENT DENIES NAUSEA OR PAIN AT THIS TIME, ENDORSES FEELING "NERVOUS" ABOUT NEW CARDIAC MEDICATIONS. BREAKFAST ORDERED, NO OTHER NEEDS NOTED AT THIS TIME.
--- NOTE | 2020-06-29 09:31 | NUR ---
PATIENT GIVEN MORNING MEDICATIONS. PATIENT IS ON ROOM AIR AND SATS ARE 91%
--- NOTE | 2020-06-29 11:00 | NUR ---
PATIENT CONTINUES ON ROOM AIR, O2 SATS ARE STABLE AT 91%. PATIENT USING IS AND ACAPELLA.
--- NOTE | 2020-06-29 11:07 | NUR ---
DR. DONOHUE IN TO SEE PATIENT, DISCUSS DISCHARGE HOME TODAY. PATIENT HAS TELE D/C'D AND IS GETTING IN THE SHOWER AT THIS TIME.
[2020-06-29] MEDS ORDERED: DILTIAZEM ER240 MG PO (11:17)
[2020-06-29] MEDS ORDERED: PREDNISONE20 MG PO (11:18)
--- NOTE | 2020-06-29 13:04 | NUR ---
PATIENT GIVEN DISCHARGE INSTRUCTIONS. X2 SALINE LOCKS REMOVED WITH CATHETER TIPS INTACT. VITALS ARE STABLE. PHARMACIST IN TO DISCUSS NEW MEDICATIONS WITH PATIENT.
--- NOTE | 2020-06-29 13:37 | NUR ---
PATIENT GIVEN WHEELCHAIR RIDE TO FRONT DOOR. PATIENT'S SON IS TRANSPORTING PATIENT HOME.
== END 2020-06-29 13:30 | disposition home or self-care (01) | DRG 189 ==
LOC: ED 17:46 → CCU 22:20 → MS 06-27 10:56 → CCU 06-28 01:12 → MS 06-28 16:22
PROVIDERS: ADMIT Internal Medicine; ATTEND Internal Medicine
DX: J96.01 Acute respiratory failure with hypoxia (principal); J45.41 Moderate persistent asthma with (acute) exacerbation; I47.1 Supraventricular tachycardia; Z20.822 Contact with and (suspected) exposure to COVID-19; E87.6 Hypokalemia; F32.9 Major depressive disorder, single episode, unspecified; K21.9 Gastro-esophageal reflux disease without esophagitis; F41.1 Generalized anxiety disorder; T48.6X5A Adverse effect of antiasthmatics, initial encounter; Z79.899 Other long term (current) drug therapy; Z79.1 Long term (current) use of non-steroidal anti-inflammatories (NSAID); Z79.51 Long term (current) use of inhaled steroids
CPT/HCPCS: 36415; 71045; 80048; 80053; 83735; 84484; 85025; 85379; 87502; 93005; 93010; 94640; 94644; 94667; 94668; 94760; 96374; 99285-25; C9803; J0153; J1650; J2920; J2930; J3475; J3480; J7030; J7120; J7512; U0003

== ENCOUNTER 2020-07-09 06:31 | Emergency (ER) | payer OTHER ==
[~2020-07-09] VITALS: Ht 157.5 cm; Wt 94.8 kg
[~2020-07-09 06:31] MED LIST changes: +ALBUTEROL2.5 MG/3 M INH; +DILTIAZEM ER240 MG PO; +SPIRIVA18 MCG INH; +VENTOLIN HFA18 GM INH; +ZITHROMAX250 MG PO
--- OUTSIDE RECORDS SUMMARY | 2020-07-09 06:34 | XMS ---
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 - 2 Visits in 30 Days CARE PROVIDERS There are no care providers on record at this time. Avila has no Care Guidelines for this patient. [place] V[facility] ([address] [facility] NOTE: Visits indicate total known visits. ED/[facility] VISIT TRACKING (12 MO.) 07/09/2020 06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 - Gastro-esophageal reflux disease without esophagitis - Slipping, tripping and stumbling without falling, unspecified, initial encounter - Major depressive disorder, single episode, unspecified INPATIENT VISIT TRACKING (12 MO.) 06/26/2020 22:20 [facility] OR TYPE: Medical Surgical COMPLAINT: - ASTHMA EXACERBATION DIAGNOSES: - Generalized anxiety disorder - Major depressive disorder, single episode, unspecified - jail (current) use of inhaled steroids - Supraventricular tachycardia - Hypokalemia - jail (current) use of non-steroidal anti-inflammatories (NSAID) - Gastro-esophageal reflux disease without esophagitis - Adverse effect of antiasthmatics, initial encounter - Moderate persistent asthma with (acute) exacerbation - Acute respiratory failure with hypoxia - 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
--- NOTE | 2020-07-10 13:33 | EKG ---
[facility] [address] [place], [place] [address] Signed Sinus tachycardia Cannot rule out Anterior infarct (cited on or before 28-JUN-2020) Abnormal ECG When compared with ECG of 28-JUN-2020 01:01, No significant change was found Confirmed by SHANTA CHACON MD ([id number]) on 07/10/2020 1:33:20 PM Electronically Signed By: SHANTA CHACON MD 07/10/20 1333 PATIENT NAME: ARIELA GANDHI Electrocardiogram DATE OF : 57 PHYSICIAN: SHANTA CHACON MD REPORT #: [id number] REPORT IS CONFIDENTIAL AND NOT TO BE RELEASED WITHOUT AUTHORIZATION
== END 2020-07-09 10:15 | disposition home or self-care (01) ==
LOC: ED 06:31
DX: R07.89 Other chest pain (principal); R00.0 Tachycardia, unspecified; J45.909 Unspecified asthma, uncomplicated; K21.9 Gastro-esophageal reflux disease without esophagitis; Z88.8 Allergy status to other drugs, medicaments and biological substances; Z79.899 Other long term (current) drug therapy
CPT/HCPCS: 71045; 80053; 81001; 83735; 84443; 84484; 85025; 93005; 93010; 99285-25; J7030

== ENCOUNTER 2020-10-19 06:56 | Emergency (ER) | payer OTHER ==
[~2020-10-19] VITALS: Ht 157.5 cm; Wt 94.8 kg
--- NOTE | ~2020-10-19 | EKG ---
[facility] [address] [facility] [facility], [place] [address] Draft EK completed, results pending confirmation PATIENT NAME: NANDO GANDHIESTEFANÍA SHEETS Electrocardiogram DATE OF : 57 PHYSICIAN: PRELIMINARY REPORT #: [id number] REPORT IS CONFIDENTIAL AND NOT TO BE RELEASED WITHOUT AUTHORIZATION
[2020-10-19] MEDS ORDERED: LORAZEPAM1 MG PO (07:49)
== END 2020-10-19 08:04 | disposition home or self-care (01) ==
LOC: ED 06:56
DX: F41.9 Anxiety disorder, unspecified (principal); J45.909 Unspecified asthma, uncomplicated; K21.9 Gastro-esophageal reflux disease without esophagitis; Z79.899 Other long term (current) drug therapy
CPT/HCPCS: 93005; 93010; 99284-25

== ENCOUNTER 2021-04-09 18:17 | Emergency (ER) | payer OTHER ==
[~2021-04-09] VITALS: Ht 157.5 cm; Wt 94.8 kg
[~2021-04-09 18:17] MED LIST changes: +LORAZEPAM1 MG PO
[2021-04-09] MEDS ORDERED: METOPROLOL SUCC25 MG PO (19:19)
[2021-04-09] MEDS ORDERED: PREDNISONE20 MG PO (19:21)
[2021-04-09] MEDS ORDERED: LANSOPRAZOLE30 MG PO (19:21)
[2021-04-09] MEDS ORDERED: FLUTICASONE PRO16 GM NAS (19:21)
[2021-04-09] MEDS ORDERED: ATORVASTATIN CA20 MG PO (19:21)
[2021-04-09] MEDS ORDERED: DILT-XR240 MG PO (19:21)
[2021-04-09] MEDS ORDERED: AZITHROMYCIN500 MG PO (19:22)
== END 2021-04-09 21:05 | disposition home or self-care (01) ==
LOC: ED 18:17
DX: J44.1 Chronic obstructive pulmonary disease with (acute) exacerbation (principal); J45.909 Unspecified asthma, uncomplicated; K21.9 Gastro-esophageal reflux disease without esophagitis; Z79.899 Other long term (current) drug therapy; Z79.52 Long term (current) use of systemic steroids
CPT/HCPCS: 71045; 80053; 83735; 84484; 85025; 94640; 99285-25

== ENCOUNTER 2022-03-01 15:04 | Emergency (ER) | payer OTHER ==
[~2022-03-01] VITALS: Ht 157.5 cm; Wt 94.8 kg
[~2022-03-01 15:04] MED LIST changes: +ATORVASTATIN CA20 MG PO; +AZITHROMYCIN500 MG PO; +DILT-XR240 MG PO; +FLUTICASONE PRO16 GM NAS; +LANSOPRAZOLE30 MG PO; +METOPROLOL SUCC25 MG PO
== END 2022-03-01 22:21 | disposition home or self-care (01) ==
LOC: ED 15:04
DX: S83.92XA Sprain of unspecified site of left knee, initial encounter (principal); J45.909 Unspecified asthma, uncomplicated; K21.9 Gastro-esophageal reflux disease without esophagitis; Z79.899 Other long term (current) drug therapy; W54.1XXA Struck by dog, initial encounter
CPT/HCPCS: 73560; 99283-25

== ENCOUNTER 2022-05-07 00:13 | Emergency (ER) | payer OTHER ==
[~2022-05-07] VITALS: Ht 157.5 cm; Wt 101.2 kg
== END 2022-05-07 02:57 | disposition home or self-care (01) ==
LOC: ED 00:13
DX: J44.1 Chronic obstructive pulmonary disease with (acute) exacerbation (principal); B97.4 Respiratory syncytial virus as the cause of diseases classified elsewhere; K21.9 Gastro-esophageal reflux disease without esophagitis; Z79.899 Other long term (current) drug therapy; Z20.822 Contact with and (suspected) exposure to COVID-19
CPT/HCPCS: 36415; 71045; 80053; 83880; 85025; 87502; 94640; 94644; 96374; 99285-25; J2930; U0003

== ENCOUNTER 2024-11-25 07:37 | Emergency (ER) | payer OTHER, MEDICARE ==
[~2024-11-25] VITALS: Ht 157.5 cm; Wt 83.9 kg
--- NOTE | ~2024-11-25 | EKG ---
[facility] [address] [facility], [place] [address] Draft EKG completed, results pending confirmation PATIENT NAME: NANDO GANDHIESTEFANÍA SHEETS Electrocardiogram DATE OF : 57 PHYSICIAN: PRELIMINARY REPORT #: [id number] REPORT IS CONFIDENTIAL AND NOT TO BE RELEASED WITHOUT AUTHORIZATION
[2024-11-25] MEDS ORDERED: ALBUTEROL/IPRATROPIUM 3 ML NEB INH ONE (07:45)
[2024-11-25] MEDS ORDERED: methylPREDNISolone SOD SUCC 125 MG/2 ML VIAL IV ONE (07:45)
[2024-11-25] MEDS ORDERED: ALBUTEROL SULFATE 0.5% 2.5 MG/0.5 ML VIAL INH ONE (07:45)
[2024-11-25] MEDS ORDERED: ESOMEPRAZOLE MA40 MG PO (08:03)
[2024-11-25 08:08] LABS: PH, VENOUS 7.526 (7.31-7.41)
[2024-11-25 08:09] LABS: BASOPHILS 0.7 % (0.1-1.2); HEMATOCRIT 35.9 % (34.1-44.9); HEMOGLOBIN 10.8 g/dL (11.2-15.7); LYMPHOCYTES 24.1 % (19.3-51.7); MCH 22.9 PG (25.6-32.2); MCHC 30.1 g/dL (32.2-35.5); MCV 76.2 fL (79.4-94.8); MONOCYTES 7.8 % (4.7-12.5); PLATELET COUNT 359 K/uL (182-369); RBC 4.71 M/uL (3.93-5.22)
[2024-11-25] MEDS ORDERED: PREDNISONE20 MG PO (08:29)
[2024-11-25 08:32] LABS: ALBUMIN 3.6 g/dL (3.4-5.0); ALBUMIN/GLOBULIN RATIO 0.95 (1.1-2.4); BILIRUBIN, TOTAL 0.4 mg/dL (0.2-1.0); BUN/CREATININE RATIO 13.33 (6.0-28.6); CALCIUM 8.9 mg/dL (8.5-10.1); CREATININE, SERUM 0.9 mg/dL (0.55-1.02); PROTEIN, TOTAL 7.4 g/dL (6.4-8.2)
[2024-11-25 09:28] VITALS: BP 155/79
[2024-11-26] MEDS ORDERED: FLUOXETINE HCL20 MG PO (09:18)
[2024-11-26] MEDS ORDERED: LO-DOSE ASPIRIN81 MG PO (10:06)
[2024-11-26] MEDS ORDERED: CLARITIN10 MG PO (10:07)
== END 2024-11-25 09:28 | disposition home or self-care (01) ==
LOC: ED 07:37
PROVIDERS: Emergency Medicine
DX: J45.901 Unspecified asthma with (acute) exacerbation (principal); J45.909 Unspecified asthma, uncomplicated; K21.9 Gastro-esophageal reflux disease without esophagitis; Z79.51 Long term (current) use of inhaled steroids; Z79.899 Other long term (current) drug therapy
CPT/HCPCS: 36415; 71045; 80053; 82803; 83880; 84484; 85025; 85379; 93005; 93010; 94640; 96374; 99285-25; J2919

== ENCOUNTER 2024-11-25 16:32 | Inpatient (IN) | payer OTHER, MEDICARE ==
[~2024-11-25] VITALS: Ht 157.5 cm; Wt 100.7 kg
[~2024-11-25 16:32] MED LIST changes: +ESOMEPRAZOLE MA40 MG PO
--- OUTSIDE RECORDS SUMMARY | 2024-11-25 16:35 | XMS ---
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 [place] VISIT COUNT (12 MO[address] 2 [facility] TOTAL 2 NOTE: Visits indicate total known visits. ED/[facility] VISIT TRACKING (12 MO.) 11/25/2024 16:33 [facility] [place] TYPE: Emergency COMPLAINT: - SOB 11/25/2024 07:38 [facility] [place] TYPE: Emergency COMPLAINT: - SOB INPATIENT VISIT TRACKING (12 MO.) No inpatient visits to display in this time frame [email or web address]
[2024-11-25] MEDS ORDERED: IPRATROPIUM BROMIDE 2.5 ML VIAL INH ONE (16:45)
[2024-11-25] MEDS ORDERED: MAGNESIUM SULFATE 2 GM/50 ML BAG IV ONE (16:45)
[2024-11-25] MEDS ORDERED: SODIUM CHLORIDE 0.9% 1,000 ML IV PRN (16:45)
[2024-11-25] MEDS ORDERED: ALBUTEROL SULFATE 0.5% 2.5 MG/0.5 ML VIAL INH ONE (16:45)
[2024-11-25 16:48] LABS: BASOPHILS 0.2 % (0.1-1.2); EOSINOPHILS 0.1 % (0.7-5.8); HEMATOCRIT 38.2 % (34.1-44.9); HEMOGLOBIN 11.5 g/dL (11.2-15.7); LYMPHOCYTES 9.4 % (19.3-51.7); MCH 22.9 PG (25.6-32.2); MCHC 30.1 g/dL (32.2-35.5); MCV 75.9 fL (79.4-94.8); MONOCYTES 1.4 % (4.7-12.5); NEUTROPHILS 88.1 % (34.0-71.1); PLATELET COUNT 465 K/uL (182-369); RBC 5.03 M/uL (3.93-5.22)
[2024-11-25 17:14] LABS: ALBUMIN 3.9 g/dL (3.4-5.0); ALBUMIN/GLOBULIN RATIO 0.87 (1.1-2.4); BILIRUBIN, TOTAL 0.5 mg/dL (0.2-1.0); BUN/CREATININE RATIO 10.74 (6.0-28.6); CALCIUM 9.3 mg/dL (8.5-10.1); CREATININE, SERUM 1.21 mg/dL (0.55-1.02); PROTEIN, TOTAL 8.4 g/dL (6.4-8.2)
[2024-11-25] MEDS ORDERED: ondansetron HCL 4 MG/2 ML VIAL IV PRN (18:30)
[2024-11-25] MEDS ORDERED: ACETAMINOPHEN 325 MG TAB PO PRN (18:30)
[2024-11-25] MEDS ORDERED: LACTATED RINGER'S 1,000 ML IV SCH (18:30)
[2024-11-25] MEDS ORDERED: ACETAMINOPHEN 500 MG TAB PO ONE (18:45)
--- NOTE | 2024-11-25 19:10 | EKG ---
[facility] [address] [facility] [place], [place] [address] Signed Sinus tachycardia Otherwise normal ECG When compared with ECG of 25-NOV-2024 07:47, No significant change was found Confirmed by Justin Cabrales DO ([id number]) on 11/25/2024 7:10:27 PM Electronically Signed By: JUSTIN CABRALES DO 11/25/241909 PATIENT NAME: ARIELA GANDHI Electrocardiogram DATE OF : 57 PHYSICIAN: JUSTIN CABRALES DO REPORT #: [id number] REPORT IS CONFIDENTIAL AND NOT TO BE RELEASED WITHOUT AUTHORIZATION
[2024-11-25 19:12] LABS: TSH, 3RD GENERATION 0.738 uIU/mL (0.358-3.740)
[2024-11-25] MEDS ORDERED: hydrOXYzine pamoate 25 MG CAP PO PRN (19:15)
[2024-11-25] MEDS ORDERED: ALBUTEROL/IPRATROPIUM 3 ML NEB INH SCH ×2 (20:00)
[2024-11-25] MEDS ORDERED: BUDESONIDE 0.25 MG/2 ML ML INH SCH ×2 (20:00)
[2024-11-25 20:16] VITALS: BP 148/74
--- NOTE | 2024-11-25 20:19 | NUR ---
IV IS IN *RIGHT* HAND
[2024-11-25] MEDS ORDERED: BUDESONIDE 0.5 MG/2 ML VIAL ONE (20:21)
--- NOTE | 2024-11-25 20:30 | NUR ---
PT ADMITTED TO ROOM 119 VIA STRETCHER. PT ABLE TO TRANSFER SELF TO HOSPITAL BED W/ SBA. ADMISSION DONE BY THIS RN. SCD'S APPLIED PER ORDER. IVF INITIATED PER EMAR. FRESH ICE WATER PROVIDED. CALL LIGHT WITHIN REACH.
[2024-11-25] MEDS ORDERED: METOPROLOL SUCCINATE 25 MG TABCR PO SCH (21:00)
[2024-11-25] MEDS ORDERED: MELATONIN 3 MG TAB PO PRN (21:00)
--- NOTE | 2024-11-25 21:36 | NUR ---
NASAL SWAB OBTAINED. PT PROVIDED W/ HS SNACK PER REQUEST.
--- NOTE | 2024-11-25 21:44 | NUR ---
PATIENT RESTING IN BED. ASSESSMENT COMPLETE. SCDs IN PLACE. CPOX IN PLACE. NO FURTHER NEEDS. PATIENT EDUCATED TO ROOM AND CALL LIGHT. CALL LIGHT IN REACH.
--- NOTE | 2024-11-25 22:09 | NUR ---
CALL LIGHT ANSWERED. PT NEEDED TO USE BATHROOM. FIRE TECHNICIAN SBA PT TO BATHROOM. PT VOIDED AND ASSISTED BACK TO BED. PT STATES NO FURTHER NEEDS AT THIS TIME. CPOX AND SCDS CONNECTED AND CALL LIGHT WITHIN REACH.
[2024-11-25 22:12] LABS: INFLUENZA B NAA NEGATIVE (NEGATIVE); RESPIRATORY SYNCYTIAL VIR NAA NEGATIVE (NEGATIVE)
[2024-11-26] VITALS (11 sets, daily range): BP systolic 130–159; BP diastolic 62–86
[2024-11-26] MEDS ORDERED: ALBUTEROL SULFATE 0.083% 3 ML VIAL INH PRN (00:45)
--- NOTE | 2024-11-26 00:46 | NUR ---
PATIENT RESTING IN BED ON BACK WITH EYES CLOSED. RESPIRATIONS EVEN AND UNLABORED. CALL LIGHT IN REACH.
--- NOTE | 2024-11-26 01:37 | NUR ---
COMMUNICATIONS DEPARTMENT CHAIR OBTAINED VITALS AND I&O. PT STATES NO NEEDS AT THIS TIME. CALL LIGHT WITHIN REACH.
--- NOTE | 2024-11-26 02:30 | NUR ---
PATIENT RESTING IN BED, AWAKE. DENIES NEEDS AT THIS TIME. CALL LIGHT IN REACH.
--- NOTE | 2024-11-26 05:15 | NUR ---
PATIENT RESTING IN BED. VS AND I&Os OBTAINED AND RECORDED. PATIENT DENIES SOB OR NEEDS AT THIS TIME. CALL LIGHT IN REACH.
[2024-11-26 05:30] LABS: BASOPHILS 0.1 % (0.1-1.2); EOSINOPHILS 0.1 % (0.7-5.8); HEMATOCRIT 32.5 % (34.1-44.9); LYMPHOCYTES 9.9 % (19.3-51.7); MCH 23.4 PG (25.6-32.2); MCHC 30.8 g/dL (32.2-35.5); MCV 75.9 fL (79.4-94.8); MONOCYTES 8.5 % (4.7-12.5); NEUTROPHILS 80.6 % (34.0-71.1); PLATELET COUNT 352 K/uL (182-369); RBC 4.28 M/uL (3.93-5.22)
[2024-11-26 05:55] LABS: ALBUMIN 3.3 g/dL (3.4-5.0); ALBUMIN/GLOBULIN RATIO 0.92 (1.1-2.4); ANION GAP 15.1 (7-21); BILIRUBIN, TOTAL 0.5 mg/dL (0.2-1.0); BUN/CREATININE RATIO 16.88 (6.0-28.6); CALCIUM 8.9 mg/dL (8.5-10.1); CREATININE, SERUM 0.77 mg/dL (0.55-1.02); MAGNESIUM 2.4 mg/dL (1.8-2.4); POTASSIUM 4.1 mmol/L (3.5-5.1); PROTEIN, TOTAL 6.9 g/dL (6.4-8.2)
[2024-11-26] MEDS ORDERED: BUDESONIDE 0.5 MG/2 ML VIAL ONE (07:02)
--- NOTE | 2024-11-26 07:17 | NUR ---
REPORT RECEIVED FROM DECK LID FITTER RN MOIZ. PATIENT IS LYING IN BED WITH HOB ELEVATED. PATIENT WITH EYES OPEN AND RESPIRATIONS ARE EVEN AND UNLABORED. PATIENT IS ON THE NC WITH THE CPOX AT BEDSIDE. TV IS ON. PATIENT STATED NO FURTHER NEEDS AT THIS TIME. CALL LIGHT AND PERSONAL BLEONGINGS ARE WITHIN REACH.
[2024-11-26] MEDS ORDERED: BUDESONIDE 0.5 MG/2 ML VIAL INH SCH (08:00)
--- NOTE | 2024-11-26 08:00 | NUR ---
tax map technician here to transport pt to CT. Pt appears anxious, and is diaphoretic. IV S/L. Pt transfers to W/C without incident, on O2 via NC. Non-slip socks placed on pt's feet. Primary RN updated.
--- NOTE | 2024-11-26 08:10 | NUR ---
UR CLINICAL REVIEW: 2MN DENYS, MEETS OBS FOR ASTHMA EXACERBATION IV MEDICATIONS, OXYGEN, RT EVAL AND TREAT MEDICARE OBS 11/25/2024 @ 1830 ORDER MATCHES REG NO AUTH REQUIRED PER MEDICARE RULES PLAN TO DC TO HOME WHEN MEDICALLY STABLE 11/27/24
--- NOTE | 2024-11-26 08:25 | NUR ---
PATIENT IS LYING IN BED WITH HOB ELEVATED. PATIENT WITH NC IN PLACE WITH THE CPOX AT BEDSIDE. PATIENT MENTIONED GETTING A BREATHING TREATMENT. THIS RN CALLED RT. RT STATED THAT SHE GOT ONE THIS MORNING AND HE WAS ASSESSING HER. IV SITE FLUSHED WITH 10 ML NORMAL SALINE AND HAS LR INFUSING AT 100 ML/HR. IV DRESSING IS CLEAN, DRY, AND INTACT. PATIENT WITH A VISITOR IN THE ROOM AT THIS TIME. PATIENT STATED NO FURTHER NEEDS AT THIS TIME. CALL LIGHT AND PERSONAL BELONGINGS ARE WITHIN REACH.
--- NOTE | 2024-11-26 08:42 | NUR ---
0900 AND PRN VISTARIL MEDICATIONS ADMINISTERED PER THE EMAR. VITAL SIGNS TAKEN AND DOCUMENTED IN THE CHART. PATIENT WITH A VISITOR SITTING IN A RECLINER AT BEDSIDE. PATIENT STATED NO FURTHER NEEDS AT THIS TIME. CALL LIGHT AND PERSONAL BELONGINGS ARE WITHIN REACH. CPOX AT BEDSIDE. BREAKFAST TRAY IS SET UP ON THE BEDSIDE TABLE.
[2024-11-26] MEDS ORDERED: predniSONE 20 MG TAB PO SCH (09:00)
[2024-11-26] MEDS ORDERED: PANTOPRAZOLE SODIUM 40 MG TABEC PO SCH (09:00)
[2024-11-26] MEDS ORDERED: METOPROLOL SUCCINATE 25 MG TABCR PO SCH (09:00)
[2024-11-26] MEDS ORDERED: dilTIAZem HCL 240 MG CAPCR PO SCH (09:00)
--- NOTE | 2024-11-26 09:05 | NUR ---
PATIENT IS LYING IN BED WITH HOB ELEVATED. PATIENT REMAINS ON 2 L NC WITH THE CPOX AT BEDSIDE. PATIENT WITH EYES OPEN AND RESPIRATIONS ARE EVEN AND UNLABORED. PATIENT WITH A VISITOR SITTING IN THE RECLINER AT BEDSIDE. FRESH CUP OF ICE WATER PROVIDED. PATIENT STATED NO FURTHER NEEDS AT THIS TIME. CALL LIGHT AND PERSONAL BELONGINGS ARE WITHIN REACH.
[2024-11-26] MEDS ORDERED: FLUOXETINE HCL20 MG PO (09:18)
--- NOTE | 2024-11-26 09:51 | NUR ---
PATIENT IN BED AT THIS TIME. TAX SERVICES MANAGER ASSISTED PATIENT TO BATHROOM AND THEN BACK TO BED. PATIENT ASKED FOR BREATHING TREATMENT. MARTIN SLATER AND MARTIN COON NOTIFIED. CALL LIGHT WITHIN REACH, NO FURTHER NEEDS AT THIS TIME.
--- NOTE | 2024-11-26 09:55 | NUR ---
PATIENT IS SITTING ON THE EDGE OF BED WITH EYES OPEN AND RESPIRATIONS ARE EVEN AND UNLABORED. PATIENT IS ON 2 L NC WITH THE CPOX AT BEDSIDE. PATIENT IS ALERT AND ORIENTED TIMES FOUR. NO WEAKNESS NOTED. PATIENT IS A 1PA. PATIENT IS ON LR AT 100 ML/HR. IV DRESSING IS CLEAN, DRY, AND INTACT. LUNG SOUNDS WITH EXPIRATORY WHEEZE IN THE LEFT UPPER LOBE AND CLEAR IN THE RIGHT LUNG AND THE LEFT LOWER LOBE. PATIENT REPORTS SOB. CARDIAC WITH NORMAL S1 AND S2 ON AUSCULTATION. RADIAL PULSES ARE STRONG AND PEDAL PULSES ARE FAINT BILATERALLY. CAPILLARY REFILL IN THE UPPER AND LOWER EXTREMITIES IS LESS THAN 3 SECONDS BILATERALLY. NO EDEMA NOTED. SENSATION INTACT WITH NO COMPLAINTS OF NUMBNESS OR TINGLING. PATIENT WITH NO COMPLAINTS OF PAIN OR NAUSEA. PATIENT IS ON A REGULAR DIET AND BOWEL TONES ARE ACTIVE IN ALL FOUR QUADRANTS. LAST BM WAS 11/25/24. SKIN WITH SCATTERED TATTOOS NOTED. PATIENT WITH A VISITOR IN THE ROOM AND BRUSHING HER HAIR. PATIENT STATED NO FURTHER NEEDS AT THIS TIME. CALL LIGHT AND PERSONAL BELONGINGS ARE WITHIN REACH.
[2024-11-26] MEDS ORDERED: LORazepam 0.5 MG TAB PO PRN (10:00)
[2024-11-26] MEDS ORDERED: LO-DOSE ASPIRIN81 MG PO (10:06)
[2024-11-26] MEDS ORDERED: CLARITIN10 MG PO (10:07)
--- NOTE | 2024-11-26 10:07 | NUR ---
MED REC COMPLETE
--- NOTE | 2024-11-26 10:12 | NUR ---
INTO SEE PATIENT. PERSONAL HEALTH INFORMATION REVIEWED. PATIENT LIVES IN A HOUSE WITH HER LIFE PARTNER. HER SISTER AT BEDSIDE WITH HER. SHE HAS A RAMP INTO HER HOME. DOES NOT USE ANY DME. DRIVES. STATES SHE HAS SOME TROUBLES WITH WITH ELECTRIC BILL. SHE IS AWARE OF [employer]. PATIENT DENIES ANY CM NEEDS AT THIS TIME.
[2024-11-26] MEDS ORDERED: methylPREDNISolone SOD SUCC 125 MG/2 ML VIAL IV SCH (10:15)
[2024-11-26] MEDS ORDERED: ALPRAZolam 0.5 MG TAB PO PRN (10:15)
[2024-11-26] MEDS ORDERED: PHARMACY RENAL DOSE ADJUSTMENT 1 DOSE MISC PO SCH (12:00)
--- NOTE | 2024-11-26 12:04 | NUR ---
PATIENT IS LYING IN BED WITH HOB ELEVATED. PATIENT IS ON 2L NC WITH THE CPOX AT BEDSIDE. PATIENT WITH EYES CLOSED AND RESPIRATIONS ARE EVEN AND UNLABORED. CALL LIGHT AND PERSONAL BELONGINGS ARE WITHIN REACH.
[2024-11-26] MEDS ORDERED: FLUOXETINE HCL 20 MG CAP PO SCH (13:05)
[2024-11-26] MEDS ORDERED: ASPIRIN 81 MG CHEW PO SCH (13:05)
--- NOTE | 2024-11-26 14:18 | NUR ---
PATIENT IS LYING IN BED WITH HOB ELEVATED. PATIENT WITH EYES CLOSED AND RESPIRATIONS ARE EVEN AND UNLABORED. NC IN PLACE WITH THE CPOX AT BEDSIDE. CALL LIGHT AND PERSONAL BELONGINGS ARE WITHIN REACH.
--- NOTE | 2024-11-26 15:08 | NUR ---
PATIENT IS LYING IN BED WITH EYES CLOSED AND RESPIRATIONS ARE EVEN AND UNLABORED. PATIENT OPENS EYES UPON RN ENTERING THE ROOM. IV SITE FLUSHED WITH 10 ML NORMAL SALINE. LR IS INFUSING AT 100 ML/HR. IV DRESSING IS CLEAN, DRY, AND INTACT. PATIENT STATED NO PAIN WHEN ASKED BY THIS RN. LUNG SOUNDS ARE CLEAR THROUGHOUT. PATIENT IS ON 2L NC WITH THE CPOX AT BEDSIDE. PATIENT REPORTS FEELING WARM. ROOM TEMPERATURE TURNED DOWN TO 70. TEMPORAL TEMP IS 97.8 F. PATIENT STATED NO FURTHER NEEDS AT THIS TIME. CALL LIGHT AND PERSONAL BELONGINGS ARE WITHIN REACH.
--- NOTE | 2024-11-26 16:01 | NUR ---
RT IS IN THE ROOM AT THIS TIME AND ADMINISTERING A BREATHING TREATMENT. PATIENT WITH EYES CLOSED AND RESPIRATIONS ARE EVEN AND UNLABORED. CPOX AT BEDSIDE. CALL LIGHT AND PERSONAL BELONGINGS ARE WITHIN REACH.
--- NOTE | 2024-11-26 16:07 | NUR ---
IV PUMP ALARMING, THIS RN CHANGED OVER IV FLUIDS. NEW BAG HUNG - SEE MAR. I&O'S DOCUMENTED FROM PUMP FLUIDS. PT WRIST IS BENDING WHICH IS OCCLUDING HER SITE, PROVIDED PATIENT WITH A PILLOW AT THIS TIME. CALL LIGHT WITHIN REACH. PT DENIES ANY OTHER NEEDS AT THIS TIME.
[2024-11-26] MEDS ORDERED: ATORVASTATIN 20 MG TAB PO SCH (17:00)
--- NOTE | 2024-11-26 17:43 | NUR ---
1700 LIPITOR ADMINISTERED PER THE EMAR. VITAL SIGNS AND INTAKE AND OUTPUT VALUES TAKEN AND DOCUMENTED IN THE CHART. PATIENT SET UP TO BRUSH TEETH. PATIENT IS ON 1 L NC WITH THE CPOX AT BEDSIDE. PATIENT IS WATCHING TV AND STATED NO FURTHER NEEDS. CALL LIGHT AND PERSONAL BELONGINGS ARE WITHIN REACH.
--- NOTE | 2024-11-26 18:19 | NUR ---
PATIENT IS LYING IN BED WITH HOB ELEVATED. PATIENT WITH EYES CLOSED AND RESPIRATIONS ARE EVEN AND UNLABORED. TV IS ON. CPOX AT BEDSIDE AND NC IN PLACE. CALL LIGHT AND PERSONAL BELONGINGS ARE WITHIN REACH.
--- NOTE | 2024-11-26 18:23 | NUR ---
PATIENT SAID SHE BRUSHED HER TEETH. SHE ALSO ASKED ME IF I WOULD WARM UP HER WASH CLOTH SO SHE COULD WASH HER FACE. PATIENT SAID NOT TODAY BUT TOMORROW SHE WOULD LIKE TO TAKE A SHOWER.
--- NOTE | 2024-11-26 19:51 | NUR ---
REPORT RECEIVED FROM DAY SHIFT RN. PATIENT RESTING IN BED. DENIES NEEDS AT THIS TIME. CALL LIGHT IN REACH.
[2024-11-26] MEDS ORDERED: MONTELUKAST SODIUM 10 MG TAB PO SCH (21:00)
--- NOTE | 2024-11-26 21:13 | NUR ---
DRUG ABUSE SOCIAL WORKER OBTAINED VITALS AND I&O. PT STATES NO NEEDS AT THIS TIME. CALL LIGHT WITHIN REACH.
--- NOTE | 2024-11-26 21:46 | NUR ---
PATIENT RESTING IN BED. DENIES PAIN OR SOB. SCHEDULED AND PRN MEDICATION ADMINISTERED. SCDs IN PLACE. ASSESSMENT COMPLETE. CLEAR LUNG SOUNDS NOTED. PATIENT HAS NO FURTHER NEEDS AT THIS TIME. CALL LIGHT IN REACH.
--- NOTE | 2024-11-26 23:00 | NUR ---
PATIENT RESTING IN BED ON BACK WITH EYES CLOSED. RESPIRATIONS EVEN AND UNLABORED. CALL LIGHT IN REACH.
[2024-11-27] VITALS (10 sets, daily range): BP systolic 133–148; BP diastolic 64–77
[2024-11-27] MEDS ORDERED: ALBUTEROL/IPRATROPIUM 3 ML NEB INH SCH
--- NOTE | 2024-11-27 01:17 | NUR ---
CALL LIGHT ANSWERED. PT NEEDED TO USE BATHROOM. ART DISPLAY MAKER SBA TO BATHROOM. PT VOIDED AND ASSISTED BACK TO BED. PT STATES NO FURTHER NEEDS AT THIS TIME. CALL LIGHT WITHIN REACH.
--- NOTE | 2024-11-27 03:43 | NUR ---
PATIENT RESTING IN BED ON BACK WITH EYES CLOSED. RESPIRATIONS EVEN AND UNLABORED. CALL LIGHT IN REACH.
--- NOTE | 2024-11-27 04:18 | NUR ---
CALL LIGHT ANSWERED. PATIENT UP TO BATHROOM USING MINIMAL SBA TO VOID. PATIENT BACK TO BED. VIKTOR WELL. VS AND I&Os OBTAINED AND RECORDED. PATIENT HAS NO FURTHER NEEDS. CALL LIGHT IN REACH.
[2024-11-27 05:36] LABS: BASOPHILS 0.1 % (0.1-1.2); EOSINOPHILS 0.2 % (0.7-5.8); HEMATOCRIT 31.3 % (34.1-44.9); HEMOGLOBIN 9.3 g/dL (11.2-15.7); LYMPHOCYTES 10.8 % (19.3-51.7); MCHC 29.7 g/dL (32.2-35.5); MCV 77.3 fL (79.4-94.8); MONOCYTES 6.3 % (4.7-12.5); NEUTROPHILS 81.5 % (34.0-71.1); PLATELET COUNT 339 K/uL (182-369); RBC 4.05 M/uL (3.93-5.22)
[2024-11-27 05:58] LABS: ALBUMIN 3.1 g/dL (3.4-5.0); ALBUMIN/GLOBULIN RATIO 0.91 (1.1-2.4); ANION GAP 10.2 (7-21); BILIRUBIN, TOTAL 0.4 mg/dL (0.2-1.0); BUN/CREATININE RATIO 22.78 (6.0-28.6); CALCIUM 8.5 mg/dL (8.5-10.1); CREATININE, SERUM 0.79 mg/dL (0.55-1.02); MAGNESIUM 2.3 mg/dL (1.8-2.4); POTASSIUM 4.2 mmol/L (3.5-5.1); PROTEIN, TOTAL 6.5 g/dL (6.4-8.2)
--- NOTE | 2024-11-27 06:57 | NUR ---
REPORT RECEIVED FROM IMMUNOLOGY TEACHER RN MOIZ. PATIENT IS LYING IN BED WITH HOB ELEVATED. PATIENT WITH EYES CLOSED AND RESPIRATIONS ARE EVEN AND UNLABORED. NC IN PLACE WITH THE CPOX AT BEDSIDE. TV IS ON. LR IS INFUSING AT 100 ML/HR. CALL LIGHT AND PERSONAL BELONGINGS ARE WITHIN REACH.
--- NOTE | 2024-11-27 07:31 | NUR ---
PATIENT AMBULATED TO THE BATHROOM WITH SBA. PATIENT REMAINS ON NC. PATIENT EDUCATED TO PULL THE CALL LIGHT WHEN SHE IS FINISHED. PATIENT EXPRESSED UNDERSTANDING. PATIENT STATED NO FURTHER NEEDS.
--- NOTE | 2024-11-27 07:34 | NUR ---
PATIENT ASSISTED BACK TO BED AFTER USING THE BATHROOM. PATIENT REPORTS FEELING BETTER. PATIENT REMAINS ON 1 L NC WITH THE CPOX AT BEDSIDE. PATIENT STATED NO FURTHER NEEDS AT THIS TIME. CALL LIGHT AND PERSONAL BELONGINGS ARE WITHIN REACH.
--- NOTE | 2024-11-27 08:46 | NUR ---
PATIENT IS LYING IN BED WITH HOB ELEVATED. PATIENT IS ON ROOM AIR WITH THE CPOX AT BEDSIDE. VITAL SIGNS TAKEN AND DOCUMENTED IN THE CHART. PATIENT VISITOR ARRIVE AND IS SITTING IN THE RECLINER AT BEDSIDE. PATIENT REPORTS FEELING BETTER THAN YESTERDAY WHEN SPEAKING WITH HER VISITOR. IV SITE FLUSHED WITH 10 ML NORMAL SALINE. LR IS INFUSING AT 100 ML/HR. IV DRESSING IS CLEAN, DRY, AND INTACT. PATIENT STATED NO FURTHER NEEDS AT THIS TIME. CALL LIGHT AND PERSONAL BELONGINGS ARE WITHIN REACH.
--- NOTE | 2024-11-27 09:23 | NUR ---
PATIENT IS LYING IN BED WITH HOB ELEVATED. PATIENT IS ON ROOM AIR WITH THE CPOX AT BEDSIDE. PATIENT IS SPEAKING WITH A VISITOR AT BEDSIDE. CALL LIGHT AND PERSONAL BELONGINGS ARE WITHIN REACH.
--- NOTE | 2024-11-27 10:19 | NUR ---
PATIENT IS LYING IN BED WITH HOB ELEVATED. PATIENT WITH EYES OPEN AND RESPIRATIONS ARE EVEN AND UNLABORED. PATIENT IS ON ROOM AIR WITH THE CPOX AT BEDSIDE. PATIENT IS SPEAKING WITH A VISITOR SITTING IN THE RECLINER AT BEDSIDE. PATIENT STATED NO FURTHER NEEDS AT THIS TIME. CALL LIGHT AND PERSONAL BELONGINGS ARE WITHIN REACH.
--- NOTE | 2024-11-27 11:26 | NUR ---
PATIENT IS LYING IN BED WITH HOB ELEVATED. PATIENT WITH EYES OPEN AND RESPIRATIONS ARE EVEN AND UNLABORED. PATIENT IS SPEAKING WITH TWO VISITORS SITTING AT BEDSIDE. FULL ASSESSMENT COMPLETE AND DOCUMENTED IN THE CHART. PATIENT IS ALERT AND ORIENTED TIMES FOUR. PATIENT WITH NO COMPLAINTS OF WEAKNESS, PAIN, OR NAUSEA. IV SITE FLUSHED WITH 10 ML NORMAL SALINE. IV DRESSING IS CLEAN, DRY, AND INTACT. LR IS INFUSING AT 100 ML/HR. PATIENT IS ON ROOM AIR WITH THE CPOX AT BEDSIDE. LUNG SOUNDS ARE CLEAR THROUGHOUT. CARDIAC WITH NORMAL S1 AND S2 ON AUSCULTATION. RADIAL AND PEDAL PULSES ARE STRONG BILATERALLY. CAPILLARY REFILL IS LESS THAN 3 SECONDS IN THE UPPER AND LOWER EXTREMITIES BILATERALLY. NO EDEMA NOTED. SENSATION INTACT WITH NO COMPLAINTS OF NUMBNESS OR TINGLING. PATIENT IS ON A REGULAR DIET AND BOWEL TONES ARE ACTIVE IN ALL FOUR QUADRANTS. LAST BM WAS 11/25/24. SKIN WITH SCATTERED TATTOOS AND SCABS NOTED. JAVIER, RT ENTERED THE ROOM AT THIS TIME. PATIENT STATED NO FURTHER NEEDS AT THIS TIME. CALL LIGHT AND PERSONAL BELONGINGS ARE WITHIN REACH.
--- NOTE | 2024-11-27 12:29 | NUR ---
PATIENT IS LYING IN BED WITH HOB ELEVATED. PATIENT WITH EYES OPEN AND RESPIRATIONS ARE EVEN AND UNLABORED. PATIENT IS USING THE ACCAPELLA. LUNCH TRAY IS AT THE BEDSIDE. PATIENT STATED NO FURTHER NEEDS AT THIS TIME. CALL LIGHT AND PERSONAL BELONGINGS ARE WITHIN REACH.
--- NOTE | 2024-11-27 13:19 | NUR ---
IV FLUIDS DISCONTINUED. IV SITE FLUSHED WITH 10 ML NORMAL SALINE AND IS SALINE LOCKED. IV DRESSING IS CLEAN, DRY, AND INTACT. IV PUMP CLEARED OF INTAKE FLUIDS. PATIENT REMAINS ON ROOM AIR WITH THE CPOX AT BEDSIDE. PATIENT STATED NO FURTHER NEEDS AT THIS TIME. CALL LIGHT AND PERSONAL BELONGINGS ARE WITHIN REACH.
--- NOTE | 2024-11-27 14:12 | NUR ---
PATIENT IS TAKING A SHOWER AT THIS TIME. LISSETH DEVLIN IS IN THE ROOM AT THIS TIME AND CHANGING BEDDING.
--- NOTE | 2024-11-27 14:26 | NUR ---
PATIENT IS SITTING ON THE EDGE OF BED AFTER TAKING A SHOWER. PATIENT IS ON ROOM AIR AND GETTING RECONNECTED TO [facility] BY LISSETH DEVLIN. LUNG SOUNDS ARE CLEAR THROUGHOUT AND PATIENT HAS NO COMPLAINTS OF SOB. PATIENT WITH NO COMPLAINTS OF PAIN. IV SITE IS SALINE LOCKED. IV DRESSING IS CLEAN, DRY, AND INTACT. PATIENT STATED NO FURTHER NEEDS AT THIS TIME. CALL LIGHT AND PERSONAL BELONGINGS ARE WITHIN REACH.
--- NOTE | 2024-11-27 14:39 | NUR ---
PT SHOWERED, BED LINENS CHANGED, ROOM CLEANED UP, SHOWER/BATHROOM CLEANED UP AFTER CARE, ORAL CARE COMPLETED, SKIN CARE COMPLETED, ROBE CHANGED FOLLOWING SHOWER, AND PT RECEIVED FRESH ICE WATER AND APPLE JUICE REQUESTED. TRASH EMPTIED IN ROOM AND NEW OXIMETER PLACED ON PT'S FINGER FOLLOWING SHOWER. CALL LIGHT WITHIN REACH OF PT. PT REPORTED NEEDING NOTHING ELSE AT THIS TIME. PT WATCHING TV WHEN THIS TOOLROOM ATTENDANT LEFT ROOM.
--- NOTE | 2024-11-27 15:02 | NUR ---
PATIENT IS LYING IN BED WITH HOB ELEVATED. PATIENT WITH EYES OPEN AND SPEAKING ON THE PHONE. ACCAPELLA IN HAND. PATIENT STATED NO FURTHER NEEDS AT THIS TIME. CALL LIGHT AND PERSONAL BELONGINGS ARE WITHIN REACH.
--- NOTE | 2024-11-27 17:19 | NUR ---
PATIENT IS LYING IN BED WITH HOB ELEVATED. PATIENT IS WATCHING TV. RESPIRATIONS ARE EVEN AND UNLABORED. PATIENT STATED NO WHEN THIS RN ASKED IF SHE HAD SOB. PATIENT STATED NO FURTHER NEEDS AT THIS TIME. CALL LIGHT AND PERSONAL BELONGINGS ARE WITHIN REACH.
--- NOTE | 2024-11-27 17:25 | NUR ---
GOT PT FRESH ICE WATER AND A CUP OF ICE REQUESTED FOR HER APPLE JUICE FROM [facility] IN THE EVENING. PT IS WATCHING TV IN BED, AWAKE AND ALERT. PT REQUESTS NOTHING ELSE AT THIS TIME. CALL LIGHT WITHIN REACH.
--- NOTE | 2024-11-27 17:59 | NUR ---
PATIENT ORAL TEMP WAS 98.5. PATIENT STATES SHE HAD A HOT FLASH A LITTLE BIT AGO. PATIENT AMBULATED TO THE BATHROOM WITH STAND BY ASSIST. PATIENT EDUCATED TO PULL THE CALL LIGHT WHEN FINISHED. PATIENT EXPRESSED UNDERSTANDING.
--- NOTE | 2024-11-27 18:03 | NUR ---
PATIENT VOID 400 ML YELLOW URINE. PATIENT AMBULATED BACK TO BED WITH SBA. PATIENT RECONNECTED TO [facility] AND REMAINS ON ROOM AIR. PATIENT STATED NO FURTHER NEEDS AT THIS TIME. CALL LIGHT AND PERSONAL BELONGINGS ARE WITHIN REACH. TV IS ON.
--- NOTE | 2024-11-27 19:49 | NUR ---
BEDSIDE REPORT FROM BRYON Munroe RN, PATIENT SITTING UP IN BED, SHE IS ALERT AND ORIENTED ON ROOM AIR, SHE REPORTS SHE FEELS GOOD. HAD A SHOWER TODAY. SHE HAS NO NEEDS AT THIS TIME.
--- NOTE | 2024-11-27 21:50 | NUR ---
IN TO ASSIST PT TO THE TOILET, JULIETA
[2024-11-28] VITALS (9 sets, daily range): BP systolic 129–154; BP diastolic 60–82
--- NOTE | 2024-11-28 00:23 | NUR ---
PATIENT UP TO BATHROOM, AMBULATED WITH STANDBY ASSIST, SHE HAS STEADY GAIT. VOIDED 500ML CLEAR YELLOW URINE. SCDS ON.
[2024-11-28 02:23] LABS: QUANTIFERON MITOGEN MINUS NIL 9.92 IU/mL (()); QUANTIFERON NIL 0.08 IU/mL (()); QUANTIFERON PLUS TB1 MINUS NIL 0.02 IU/mL (<=0.34); QUANTIFERON PLUS TB2 MINUS NIL 0.02 IU/mL (<=0.34); QUANTIFERON TB GOLD PLUS Negative (Negative)
[2024-11-28 03:51] LABS: ANGIOTENSIN CONVERTING ENZYME 31 U/L (16-85)
--- NOTE | 2024-11-28 04:46 | NUR ---
PATIENT UP TO BATHROOM TO VOID, STANDBY ASSIST, STEADY GAIT. PATIENT VOIDED 650ML, FRESH ICE WATER PROVIDED. V/S DONE FOCUSED ASSESSMENT COMPLETE. PATIENT VERBALIZES NO FURTHER NEEDS AT THIS TIME.
[2024-11-28 05:48] LABS: ALBUMIN 3.1 g/dL (3.4-5.0); ALBUMIN/GLOBULIN RATIO 0.91 (1.1-2.4); ANION GAP 12.7 (7-21); BILIRUBIN, TOTAL 0.4 mg/dL (0.2-1.0); BUN/CREATININE RATIO 19.51 (6.0-28.6); CALCIUM 8.4 mg/dL (8.5-10.1); CREATININE, SERUM 0.82 mg/dL (0.55-1.02); POTASSIUM 3.7 mmol/L (3.5-5.1); PROTEIN, TOTAL 6.5 g/dL (6.4-8.2)
[2024-11-28 06:00] LABS: PROCALCITONIN <0.02 ng/mL (<=0.08)
--- NOTE | 2024-11-28 07:27 | NUR ---
Pt report received from MARTIN Angela. Pt is resting supine in bed, A&O, watching television. Denies needs at this time Side rails up x4, call light in reach. White board updated.
[2024-11-28] MEDS ORDERED: ALBUTEROL/IPRATROPIUM 3 ML NEB INH SCH (08:00)
--- NOTE | 2024-11-28 08:21 | NUR ---
PT AWAKE AND ALERT WHEN ENTERED ROOM. PT REQUESTED APPLE JUICE WITH ICE, GOT IT. EMPTIED TRASH AND CHANGED WHITE BOARD IN ROOM. CALL LIGHT WITHIN REACH OF PT. PT REQUESTING NOTHING ELSE AT THIS TIME, DISCUSSED SHOWER FOLLOWING BREAKFAST.
[2024-11-28] MEDS ORDERED: dilTIAZem HCL 300 MG CAPCR PO SCH (09:00)
--- NOTE | 2024-11-28 10:32 | NUR ---
PT AWAKE AND ALERT IN ROOM, LAYING, HEAD UP IN BED. PT FINISHED BREATHING TREATMENT, HAS ICE WATER AND ICED APPLE JUICE. CALL LIGHT WITHIN REACH, PT REPORTING NEEDING NOTHING ELSE AT THIS TIME.
--- NOTE | 2024-11-28 12:36 | NUR ---
PT HAD FULL SHOWER, ORAL CARE, SHAMPOO, AND SKIN CARE. LINEN CHANGE OCCURRED WHILE IN CHAIR EATING LUNCH. PT HAS FRESH ICE WATER. CALL LIGHT WITHIN REACH OF PT. PT NEEDS NOTHING ELSE AT THIS TIME, SELF-REPORT.
--- NOTE | 2024-11-28 18:08 | NUR ---
PT FINISHED DINNER AND THEN USED THE RESTROOM. PT REPORTED NO PAIN, TROUBLE WITH VISION OR DIZZINESS WHEN AMBULATING. PT HAS ICE WATER AND GRAPE JUICE WITH FRESH ICE FROM DINNER. CALL LIGHT IS WITHIN REACH OF PT AND THE PT REPORTS NOT NEEDING ANYTHING ELSE AT THIS TIME. PT IS SITTING WITH HER HEAD UP IN BED WHILE WATCHING TV. PT WAS SITTING IN HER CHAIR WHILE EATING DINNER.
--- NOTE | 2024-11-28 19:48 | NUR ---
PT ALERT AND ORIENTED. PT PULSE OX 93%, NO RESPIRATORY DISTRESS. PT HAS NO NEEDS AT THIS TIME. CALL LIGHT WITHIN REACH.
--- NOTE | 2024-11-28 21:00 | NUR ---
Admin melatonin 3mg po and alprazolam 0.5mg po for anxiety and insomnia per pt request.
--- NOTE | 2024-11-28 21:08 | NUR ---
Patient awake, alert and oriented x3, no acute distress. Patient is on room air, respirations non labored, sp02 93% per cpox. Patient denies shortness of breath at this time. Notable intermittent dry cough, hob elevated.
--- NOTE | 2024-11-28 23:49 | NUR ---
PT RESTING WITH EYES CLOSED. PULSE OX 92%, BREATHING EVEN. CALL LIGHT WITHIN REACH.
--- NOTE | 2024-11-29 02:18 | NUR ---
Patient resting, eyes closed, respirations even and non labored. CPOX in place, sp02 94%.
--- NOTE | 2024-11-29 02:59 | NUR ---
RECEIVED REPORT FROM DAY SHIFT RN. PATIENT IS RESTING IN BED WITH EYES CLOSED, RR 16. CALL LIGHT IN REACH. NAD NOTED.
[2024-11-29 04:09] VITALS: BP 159/70
--- NOTE | 2024-11-29 04:15 | NUR ---
PATIENT UP TO BR A SBA. PATIENT ABLE TO VOID. VITALS TAKEN AND RECORDED. PATIENTS INTAKE AND OUTPUT RECORDED. PATIENT IS BACK IN BED RESTING. PATIENT REMAINS ON RA AND DENIES ANY SOB. CPOX IN USE. PATIENT DENIES ANY FURTHER NEEDS. CALL LIGHT IN REACH. FRESH ICE WATER PROVIDED.
[2024-11-29 04:19] VITALS: BP 159/70
[2024-11-29 05:31] LABS: COCCIDIOIDES AB,IGG ELISA 0.5 IV (<=0.9); COCCIDIOIDES AB,IGM ELISA 0.3 IV (<=0.9)
[2024-11-29 05:53] LABS: BUN/CREATININE RATIO 23.91 (6.0-28.6); CALCIUM 8.4 mg/dL (8.5-10.1); CREATININE, SERUM 0.92 mg/dL (0.55-1.02); MAGNESIUM 2.3 mg/dL (1.8-2.4)
--- NOTE | 2024-11-29 06:09 | NUR ---
PATIENT IS RESTING IN BED WATCHING TV. PATIENT DENIES ANY NEEDS. CALL LIGHT IN REACH.
--- NOTE | 2024-11-29 07:04 | NUR ---
Pt report received from MARTIN Malone.
--- NOTE | 2024-11-29 07:49 | NUR ---
PATIENT IN BED AT THIS TIME. 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 RESPIRATORY THERAPY IN ROOM AT THIS TIME. PATIENT REFUSED CHAIR AT THIS TIME. CALL LIGHT WITHIN REACH, NO FURTHER NEEDS.
[2024-11-29] MEDS ORDERED: BUDESONIDE 0.5 MG/2 ML VIAL INH SCH (08:00)
--- NOTE | 2024-11-29 08:01 | NUR ---
In with pt for med administration. Pt is sitting up in bed, A&O, television on, RT in room administering breathing tx. Pt assessment done at this time. Pt states she still has not had a BM since the and would like miralax and senokot. White board updated. Side rails up x3, call light in reach. Breakfast tray on bedside table. Pt denies further needs at this time.
--- NOTE | 2024-11-29 08:27 | NUR ---
Pt up to restroom to void with SBA
--- NOTE | 2024-11-29 08:28 | NUR ---
Pt voided approximately 550ml nadiya colored, cloudy, pungent smelling urine. Advised pt it is important to stay hydrated. Pt denies any burning with urination.
--- NOTE | 2024-11-29 08:50 | NUR ---
talked with patient about home o2. will wait for home o2 qualifer. patient given patient choice letter. would like to use [employer] for home o2. no futher needs.
--- NOTE | 2024-11-29 08:59 | NUR ---
PATIENT IN CHAIR AT THIS TIME. THIS RN HOSPITAL CHANGED PATIENTS LINENS AND PROVIDED WARM WET WASH CLOTH TO PATIENT FOR FACE. CALL LIGHT WITHIN REACH, NO FURTHER NEEDS AT THIS TIME.
[2024-11-29] MEDS ORDERED: dilTIAZem HCL 180 MG CAPCR PO SCH (09:00)
[2024-11-29] MEDS ORDERED: predniSONE 20 MG TAB PO SCH (09:00)
--- NOTE | 2024-11-29 09:10 | NUR ---
Dr. Lal in with pt and this RN for rounding. Pt up in chair.
--- NOTE | 2024-11-29 09:49 | NUR ---
UR RETRO CONCURRENT REVIEW: 2 MN FOR VERSALUS-PER WASTE REDUCTION COORDINATOR MEETS INPT FOR ASTHMA EXACERBATION WITH NEED FOR FURTHER WORKUP MEDICARE INPT 11/29/24 @ 0948 ORDER SENT TO UPDATE REG AFTER DISCUSSED WITH MD DISCHARGE TO HOME WHEN STABLE
--- NOTE | 2024-11-29 09:49 | NUR ---
PATIENT DOES NOT MEET FOR HOME O2.
[2024-11-29 10:10] VITALS: BP 126/58
--- NOTE | 2024-11-29 10:12 | NUR ---
PATIENT IN CHAIR AT THIS TIME. PENSION FUND MANAGER CHARTED VITALS AND I&O'S. CALL LIGHT WITHIN REACH, NO FURTHER NEEDS AT THIS TIME.
[2024-11-29] MEDS ORDERED: DILTIAZEM 24HR180 M1 PO (10:21)
[2024-11-29] MEDS ORDERED: ZYRTEC10 MG PO (10:22)
[2024-11-29] MEDS ORDERED: PREDNISONE20 MG PO ×2 (10:23→10:24)
--- NOTE | 2024-11-29 10:23 | NUR ---
PATIENT IN CHAIR AT THIS TIME. PATIENT REFUSED SHOWER BECAUSE SHE WANTS TO SHOWER AT HOME. PROPERTY INSPECTOR STATED THAT IF SHE CHANGES HER MIND WE CAN DO A SHOWER. CALL LIGHT WITHIN REACH, NO FURTHER NEEDS AT THIS TIME.
[2024-11-29] MEDS ORDERED: PREDNISONE5 MG PO (10:26)
[2024-11-29] MEDS ORDERED: PREDNISONE10 MG PO (10:26)
[2024-11-29] MEDS ORDERED: PREDNISONE1 MG PO (10:27)
[2024-11-29] MEDS ORDERED: XANAX0.5 MG PO (10:29)
[2024-11-29 11:07] VITALS: BP 126/58
[2024-11-29 11:11] VITALS: BP 129/69
[2024-11-29 11:13] VITALS: BP 129/69
== END 2024-11-29 12:30 | disposition home or self-care (01) | DRG 203 ==
LOC: ED 16:32 → MS 16:34
PROVIDERS: Emergency Medicine; ADMIT Student in an Organized Health Care Education/Training Program; ATTEND Student in an Organized Health Care Education/Training Program
DX: J45.901 Unspecified asthma with (acute) exacerbation (principal); J30.2 Other seasonal allergic rhinitis; K21.9 Gastro-esophageal reflux disease without esophagitis; F41.0 Panic disorder [episodic paroxysmal anxiety]; K44.9 Diaphragmatic hernia without obstruction or gangrene; F32.9 Major depressive disorder, single episode, unspecified; E78.5 Hyperlipidemia, unspecified; Z79.52 Long term (current) use of systemic steroids; Z87.891 Personal history of nicotine dependence; Z79.51 Long term (current) use of inhaled steroids; Z79.82 Long term (current) use of aspirin
CPT/HCPCS: 36415; 71045; 71250; 71260; 80048; 80053; 82164; 83735; 83880; 84439; 84443; 84484; 85025; 85379; 87502; 93005; 93010; 94640; 94667; 94668; 94761; 94762; 94799; 96375; 96376; 99285-25; A9270; G0378; J2919; J3475; J7030; J7121; J7512; Q0177; Q9967; U0002

== ENCOUNTER 2024-12-29 10:55 | Day surgery (SDC) | payer OTHER, MEDICARE ==
[2024-12-22 15:51] VITALS: BP 134/69
[~2024-12-29] VITALS: Ht 160 cm; Wt 100.0 kg
--- NOTE | ~2024-12-29 | OR ---
[facility] [address] [place] [address] Draft DATE OF OPERATION: 12/29/2024 SURGEON: Antionette Pinon DO PREOPERATIVE DIAGNOSIS: Colon cancer screening. POSTOPERATIVE DIAGNOSIS: Colon cancer screening with colonic polyps at 20 cm and 35 cm. PROCEDURE PERFORMED: Colonoscopy with polyp biopsy utilizing a cold biopsy forceps. ANESTHESIA: IV sedation. ESTIMATED BLOOD LOSS: Minimal. DRAINS: None. COMPLICATIONS: None. DESCRIPTION OF PROCEDURE: The patient was brought to the GI lab, placed in supine position. After induction of IV sedation, the patient was placed in the left lateral position, padded to the satisfaction of anesthesia. The Olympus video endoscope was then introduced into the rectum and directed through the colon under direct visualization while insufflating and advancing to the rectosigmoid, sigmoid colon, descending colon, transverse colon, ascending colon, and cecum. The colon was then insufflated and exploration of mucosal surface was then carried out. In the ascending colon and cecum, no intrinsic or extrinsic masses were appreciated. Scope was brought back into the transverse colon. No intrinsic or extrinsic masses were noted. No lesions or ulceration were appreciated. Scope was brought back into the descending colon and passed the splenic flexure. No intrinsic or extrinsic masses, lesions, or ulcerations were noted. Scope was then brought back into the sigmoid colon, and at approximately 35 cm, a broad-based sessile polyp was appreciated. Multiple biopsies were taken and passed off the field for pathologic review. Hemostasis was maintained. Scope was then brought back into the PATIENT NAME: ARIELA GANDHI OPERATIVE REPORT DATE OF : 57 REPORT #: [id number] PHYSICIAN: ANTIONETTE PINON DO PCP: MERLE WELLS REPORT IS CONFIDENTIAL AND NOT TO BE RELEASED WITHOUT AUTHORIZATION [facility] [address] [place], [place] [address] Draft sigmoid colon further and a 20 cm of broad-based sessile polyp was noted. Multiple biopsies were taken and passed off the field for pathologic review. Otherwise, the sigmoid colon was without other lesions or ulcerations. Rectosigmoid was unremarkable. Scope was withdrawn. The patient tolerated the procedure well and went to recovery room in satisfactory condition. DO FRANKIE Asher/ANDRAE /[id number] Copies: ~ PATIENT NAME: ARIELA GANDHI OPERATIVE REPORT DATE OF : 57 REPORT #: [id number] PHYSICIAN: ANTIONETTE PINON DO PCP: MERLE WELLS REPORT IS CONFIDENTIAL AND NOT TO BE RELEASED WITHOUT AUTHORIZATION
[~2024-12-29 10:55] MED LIST changes: +CLARITIN10 MG PO; +DILTIAZEM 24HR180 M1 PO; +FLUOXETINE HCL20 MG PO; +IBLOOD GLUCOSE TEST STRIP 1 EA TEST VI PRN; +LACTATED RINGER'S 1,000 ML IV SCH; +LIDOCAINE HCL 1% 5 ML SDV INJ ONE; +LO-DOSE ASPIRIN81 MG PO; +PREDNISONE1 MG PO; +PREDNISONE10 MG PO; +PREDNISONE5 MG PO; +XANAX0.5 MG PO; +ZYRTEC10 MG PO
[2024-12-29 11:18] VITALS: BP 136/74
[2024-12-29] MEDS ORDERED: LIDOCAINE HCL 2% 5 ML SDV ONE (11:51)
--- NOTE | 2024-12-29 13:09 | NUR ---
12/29/24 Sabas9 Basia Levin 1301: PT ARRIVES TO PACU ON 6L MASK. REPORT RECEIVED FROM HEAD OF IT AND LAW FIRM PARTNER. LE 1305: PT IS SNORING AND DOES NOT AROUSE TO STIUMLI.
[2024-12-29 13:31] VITALS: BP 134/66
--- NOTE | 2024-12-31 15:39 | PATH ---
[facility] [address] [place], [place] [address] Signed SPECIMEN(S): A COLON POLYP AT 35 CM SPECIMEN(S): B COLON POLYP AT 20 CM SPECIMEN SOURCE: A. COLON POLYP AT 35 CM B. COLON POLYP AT 20 CM CLINICAL HISTORY: Colon screening FINAL PATHOLOGIC DIAGNOSIS: A. Colon polyp at 35 cm - Fragments of hyperplastic polyp. B. Colon polyp at 20 cm - Tubular adenoma. AMB MICROSCOPIC EXAMINATION: Histologic sections of all submitted blocks are examined by light microscopy. These findings, together with the gross examination, support the pathologic diagnosis. GROSS DESCRIPTION: A. The specimen, labeled and designated "Bissinger, colon polyp at 35 cm," is received in formalin and consists of two flores soft tissue fragments, ranging from 0.4-0.5 cm. Entirely submitted in (A1). B. The specimen, labeled and designated "Bissinger, colon polyp at 20 cm," is received in formalin and consists of one flores soft tissue fragment, 0.4 cm. Entirely submitted in (B1). VB (under the direct supervision of a pathologist) The Gross Description was prepared using a voice recognition system. The report was reviewed for accuracy; however, sound-alike word errors, addition and/or deletions may occur. If there is any question about this report, please contact Client Services. ADDITIONAL NOTES: Immunohistochemical and/or in situ hybridization studies if performed in this case included appropriate positive controls that reacted as expected. This test was developed and its performance characteristics determined by [facility]. It has not been cleared or approved by the U.S. Food and Drug Administration. The FDA has determined that PATIENT NAME: ARIELA GANDHI PATHOLOGY DATE OF : 57 REPORT #: [id number] PHYSICIAN: NICO THORNTON PCP: MERLE WELLS REPORT IS CONFIDENTIAL AND NOT TO BE RELEASED WITHOUT AUTHORIZATION [facility] [address] [place] [address] Signed such clearance or approval is not necessary. This test is used for clinical purposes. It should not be regarded as investigational or for research. [facility] is certified under the Clinical Laboratory Improvement Amendments of 1988 (CLIA) as qualified to perform high complexity clinical laboratory testing. PERFORMING LABORATORY: Technical component was performed by [facility], [address] [place] [address] (CLIA# [id number]). Professional interpretation was performed by [facility] - [facility] [address] [place] [id number] Diagnostician: Maureen Johnson MD Pathologist Electronically Signed 12/31/2024 Copies: ~ PATIENT NAME: ARIELA GANDHI PATHOLOGY DATE OF : 57 REPORT #: [id number] PHYSICIAN: NICO PATHOLOGY PCP: MERLE WELLS REPORT IS CONFIDENTIAL AND NOT TO BE RELEASED WITHOUT AUTHORIZATION
== END 2024-12-29 13:36 | disposition home or self-care (01) ==
LOC: DS 10:55 → OPS 10:55 → DS 13:30 → OPS 13:30
PROVIDERS: ATTEND Surgery
PROC: 0DBN8ZX Excision of Sigmoid Colon, Via Natural or Artificial Opening Endoscopic, Diagnostic (ICD-10-PCS; principal; 2024-12-29 11:40)
DX: Z12.11 Encounter for screening for malignant neoplasm of colon (principal); D12.6 Benign neoplasm of colon, unspecified; J45.909 Unspecified asthma, uncomplicated; G47.33 Obstructive sleep apnea (adult) (pediatric); Z80.0 Family history of malignant neoplasm of digestive organs; Z79.899 Other long term (current) drug therapy; Z87.891 Personal history of nicotine dependence; Z79.82 Long term (current) use of aspirin
CPT/HCPCS: 00812; J2003; J2704

== ENCOUNTER 2025-01-17 13:20 | Emergency (ER) | payer OTHER, MEDICARE ==
[~2025-01-17] VITALS: Ht 160 cm; Wt 99.0 kg
[~2025-01-17 13:20] MED LIST changes: -IBLOOD GLUCOSE TEST STRIP 1 EA TEST VI PRN; -LACTATED RINGER'S 1,000 ML IV SCH; -LIDOCAINE HCL 1% 5 ML SDV INJ ONE
[2025-01-17] MEDS ORDERED: IRON325 M1 PO (14:52)
[2025-01-17] MEDS ORDERED: MONTELUKAST SOD10 MG PO (14:52)
[2025-01-17 18:27] VITALS: BP 120/72
== END 2025-01-17 18:22 | disposition home or self-care (01) ==
LOC: ED 13:20
DX: T46.1X1A Poisoning by calcium-channel blockers, accidental (unintentional), initial encounter (principal); J45.909 Unspecified asthma, uncomplicated; K21.9 Gastro-esophageal reflux disease without esophagitis; Z79.899 Other long term (current) drug therapy
CPT/HCPCS: 99283